=== PATIENT | male | born 1935 | race Caucasian/White ===

== ENCOUNTER 2018-04-26 07:55 | Inpatient (IN) | payer MEDICARE, MEDICAID ==
[~2018-04-26] VITALS: Ht 172.7 cm; Wt 40.0 kg
--- NOTE | 2018-04-26 07:52 | Emergency Room Report ---
History of Present Illness General Source: Medical Record, EMS Present Illness HPI 82YOM BIBEMS from SNF for "fever." No other associated symptoms reported by SNF staff to EMS At baseline, patient nonverbal HPI otherwise limited had fever 101 at SNF Now to 99 after SNF gave tylenol per paperwork, history of dementia, HTN, APOLONIA, anemia Allergies: Coded Allergies: No Known Allergies (Unverified , 04/26/18) Patient History Limited by: medical condition, other - Nonverbal at baseline per EMS Review of Systems All Other Systems: limited - Nonverbal Physical Exam Sp02 EP Interpretation: reviewed, abnormal General Appearance: normal inspection, well appearing, no apparent distress, alert, non-toxic, cachetic, Chronically Ill Head: normocephalic, atraumatic Eyes: bilateral eye PERRL, bilateral eye EOMI ENT: normal ENT inspection, hearing grossly normal, normal pharynx, no angioedema, normal voice, TMs + canals normal, uvula midline, moist mucus membranes Neck: normal inspection, full range of motion, supple, thyroid normal, no meningismus, no bony tend Respiratory: normal inspection, lungs clear, normal breath sounds, no rhonchi, no respiratory distress, no retraction, no accessory muscle use, no wheezing, decreased breath sounds, speaking full sentences, other - Poor respiratory effort Cardiovascular #1: regular rate, rhythm, no edema, no JVD, normal capillary refill Gastrointestinal: normal inspection, normal bowel sounds, non tender, soft, no mass, no peritonitis, non-distended, no guarding, no hernia, no pulsatile mass Genitourinary: no CVA tenderness Musculoskeletal: normal inspection, back normal, normal range of motion, no calf tenderness, pelvis stable, Юлия's Sign negative, other - bandage on right heel removed; healing stage 1 decub. No obvious infection Neurologic: normal inspection, alert, responsive, soccer coach III-XII nml as tested, motor strength/tone normal, cerebellar normal, normal gait, speech normal, other - Focal limb movement Psychiatric: judgement/insight normal, mood/affect normal Skin: normal inspection, normal color, no rash Lymphatic: normal inspection, no adenopathy Procedures Critical Care Time Critical Care Time CC time 35 min Critical care time endorsed for this patient for suspected sepsis Critical care time includes review of laboratory tests, imaging, review of EMR, review of paperwork from SNF (if available), discussion with patient and family (if available), review of code status/POLS (if available). Critical care time also likely includes assessment of fluid status, stabilization of vital signs, selection and dosing of appropriate antibiotics, discussion with PMD/attending hospitalist/freight agent. Critical care time does not include any procedures which are documented elsewhere in this EMR. Medical Decision Making Diagnostic Impression: Primary Impression: Fever Qualified Codes: R50.9 - Fever, unspecified Additional Impressions: Hypernatremia CKD (chronic kidney disease) Qualified Codes: N18.9 - Chronic kidney disease, unspecified Elevated troponin Pneumonia Qualified Codes: J18.1 - Lobar pneumonia, unspecified organism ER Course VSS, afebrile here O2 sat low, improves with supplemental O2 - Also noted poor respiratory effort on exam Septic workup initiated Only 1L of fluid bolus given normotensive, ?history of reduced EF, CKD Hypernatremia - with elevated serumCr - Likely dehydration - IVF given Elevated troponin - likely demand ischemia +- CKD - No acute ischemia on ECG Sepsis - elevated leuks - Source: right lower lobe infiltrate on ED review of XRAY - Empiric Abx given Admit to Dr Jean at 845am Tele bed EKG Diagnostic Results Rate: normal Rhythm: NSR ST Segments: no acute changes Other Impression PVCs Rhythm Strip Diag. Results EP Interpretation: yes Rate: 97 Rhythm: NSR, other - +PVCs Chest X-Ray Diagnostic Results Chest X-Ray Diagnostic Results : Chest X-Ray Ordered: Yes # of Views/Limited/Complete: 1 View Indication: Other - fever EP Interpretation: Yes Interpretation: no effusion, no pneumothorax, no acute cardiopulmonary disease, other - Right lung infiltrate Impression: Other - Pneumonia Electronically Signed by: Dr Onelia Collins MD Status: improved Disposition: ADMITTED INPATIENT Condition: Serious ONELIA COLLINS M.D. Apr 26, 2018 07:52
[2018-04-26] MEDS ORDERED: Vancomycin 1 GM in NS 275 ML IV ONE (08:00)
[2018-04-26] MEDS ORDERED: DOCUSATE SODIU250 MG ORAL (08:09)
[2018-04-26] MEDS ORDERED: LORATADINE10 M2 PO (08:09)
[2018-04-26] MEDS ORDERED: LORAZEPAM0.5 MG ORAL (08:09)
[2018-04-26] MEDS ORDERED: ELIQUIS5 MG PO (08:09)
[2018-04-26] MEDS ORDERED: HALOPERIDOL1 MG ORAL (08:09)
[2018-04-26] MEDS ORDERED: GERI-LANTA LIQ355 ML PO (08:09)
[2018-04-26] MEDS ORDERED: DEPAKENE250 MG ORAL (08:09)
[2018-04-26] MEDS ORDERED: TRAZODONE HCL150 MG ORAL (08:09)
[2018-04-26] MEDS ORDERED: BENZTROPINE ME0.5 MG PO (08:09)
[2018-04-26] MEDS ORDERED: MILK OF MA400 MG/51 ORAL (08:09)
[2018-04-26] MEDS ORDERED: SENNA8.6 M2 PO (08:09)
[2018-04-26] MEDS ORDERED: FLUTICASONE PRO16 G1 NASAL (08:09)
[2018-04-26] MEDS ORDERED: MULTIVITAMINS1 EAC2 ORAL (08:09)
[2018-04-26] MEDS ORDERED: DONEPEZIL HCL5 M2 ORAL (08:09)
[2018-04-26] MEDS ORDERED: ALBUTEROL2.5 MG/3 M INH (08:09)
[2018-04-26] MEDS ORDERED: ASPIR 8181 MG ORAL (08:09)
[2018-04-26] MEDS ORDERED: Zosyn 3.375gm inj ONE ×2 (08:21→22:31)
[2018-04-26 08:31] LABS: APPEARANCE,URINE SLIGHTLY CLOUDY; BILIRUBIN, URINE 1+ (NEGATIVE); COLOR,URINE BROWN; GLUCOSE, URINE (UA) NEGATIVE (NEGATIVE); KETONES,URINE NEGATIVE (NEGATIVE); LEUKOCYTE ESTERASE ,URINE 1+ (NEGATIVE); NITRITE,URINE NEGATIVE (NEGATIVE); PH,URINE 5 (4.5-8.0); PROTEIN,URINE 2+ (NEGATIVE); UROBILINOGEN,URINE 1 MG/DL (0.0-1.0)
[2018-04-26 08:32] LABS: HEMATOCRIT 43.2 % (42.0-52.0); HEMOGLOBIN 13.7 G/DL (14.2-18.0); MEAN CORPUSCULAR VOLUME 92 FL (80-99); PLATELET COUNT 464 K/UL (150-450); RED BLOOD COUNT 4.69 M/UL (4.70-6.10); WHITE BLOOD COUNT 16.5 K/UL (4.8-10.8)
[2018-04-26 08:33] LABS: ANION GAP 11 mmol/L (5-15); BLOOD UREA NITROGEN 84 mg/dL (7-18); CALCIUM 9.7 MG/DL (8.5-10.1); CARBON DIOXIDE 28 MMOL/L (21-32); CHLORIDE 119 MMOL/L (98-107); POTASSIUM 4.2 MMOL/L (3.5-5.1); SODIUM 158 MMOL/L (136-145)
[2018-04-26 08:37] VITALS: BP 122/80
[2018-04-26] MEDS: Piperacillin/Tazobactam 3.375 GM in D5W 55 ML IV SCH ×2 (08:38→22:42)
[2018-04-26] MEDS ORDERED: Miralax 17gm pkt ORAL PRN (08:45)
[2018-04-26] MEDS ORDERED: LORazepam Inj 2mg/ml 1ml IV PRN (08:45)
[2018-04-26] MEDS ORDERED: Morphine Sulfate 4mg/ml Inj IVP PRN (08:45)
[2018-04-26] MEDS ORDERED: Albuterol/Ipratropium 3ml neb HHN PRN (08:45)
[2018-04-26 08:47] LABS: ALANINE AMINOTRANSFERASE 20 U/L (12-78); ALBUMIN 2.1 G/DL (3.4-5.0); ALBUMIN/GLOBULIN RATIO 0.3 (1.0-2.7); ALKALINE PHOSPHATASE 67 U/L (46-116); ASPARTATE AMINO TRANSFERASE 35 U/L (15-37); BILIRUBIN,TOTAL 1.1 MG/DL (0.2-1.0); CKMB < 0.5 NG/ML (0.0-3.6); CREATINE KINASE 147 U/L (26-308)
[2018-04-26 08:49] LABS: BILIRUBIN,DIRECT 0.3 MG/DL (0.0-0.3)
[2018-04-26] MEDS ORDERED: Vancomycin 1gm inj IVPB ONE (08:57)
[2018-04-26] MEDS ORDERED: Pantoprazole Inj IV SCH (09:00)
[2018-04-26] MEDS ORDERED: Heparin 5000 units/ml inj SUBQ SCH (09:00)
[2018-04-26 09:35] VITALS: BP 136/78
[2018-04-26] MEDS ORDERED: Acetaminophen 650 MG SUPP RECTAL ONE (10:30)
[2018-04-26 10:39] VITALS: BP 118/75
[2018-04-26] MEDS: Pantoprazole Inj IV SCH (13:11)
[2018-04-26] MEDS: Heparin 5000 units/ml inj SUBQ SCH ×2 (13:13→22:39)
--- NOTE | 2018-04-26 14:21 | Consultation ---
History of Present Illness General Date patient seen: Apr 26, 2018 Chief Complaint: Fever Present Illness HPI 82 year old Male with hx of dementia, HTN, APOLONIA, anemia brought in from SNF for "fever." No other associated symptoms reported by SNF staff to EMS. Pt had a fever of 101. his initial cxr showed RLL infiltrate. He was found to be in renal failure and admitted to telemetry for further management. Allergies: Coded Allergies: No Known Allergies (Unverified , 04/26/18) Medication History Scheduled Apixaban (Eliquis), 5 MG PO DAILY, (Reported) Aspirin* (Aspir 81*), 81 MG ORAL DAILY, (Reported) Benztropine Mesylate* (Cogentin*), 1 MG PO BID, (Reported) Docusate Sodium* (Docusate Sodium*), 250 MG ORAL DAILY, (Reported) Donepezil Hcl* (Donepezil Hcl*), 5 MG ORAL BID, (Reported) Fluticasone Propionate* (Fluticasone Propionate*), 1 SPRAY NASAL DAILY, ( Reported) Haloperidol* (Haldol*), 2 MG ORAL BID, (Reported) Loratadine (Loratadine), 10 MG PO DAILY, (Reported) Lorazepam* (Lorazepam*), 0.5 MG ORAL QID, (Reported) Mag Hydrox/Al Hydrox/Simeth (Neyda-Lanta Liquid), 30 ML PO TID, (Reported) Magnesium Hydroxide* (Milk Of Magnesia*), 30 ML ORAL DAILY, (Reported) Multivitamins* (Multivitamins*), 1 TAB ORAL DAILY, (Reported) Sennosides (Senna), 8.6 MG PO DAILY, (Reported) Trazodone* (Trazodone*), 50 MG ORAL BEDTIME, (Reported) Valproic Acid (Depakene), 500 MG ORAL BID, (Reported) Scheduled PRN Albuterol Sulfate* (Albuterol Sulfate Hhn*), 3 ML INH Q6H PRN for Shortness of Breath, (Reported) Patient History Healthcare decision maker Resuscitation status Advanced Directive on File Past Medical/Surgical History Past Medical/Surgical History: (1) Dementia (2) Psychosis (3) Hypertension (4) Severe protein-calorie malnutrition Review of Systems All Other Systems: negative except mentioned in HPI Physical Exam General Appearance: cachetic Lines, tubes and drains: peripheral HEENT: normocephalic, atraumatic Neck: non-tender, normal alignment Respiratory/Chest: chest wall non-tender, rhonchi - left, rhonchi - right Cardiovascular/Chest: normal peripheral pulses, normal rate Abdomen: normal bowel sounds, non tender, soft Genitourinary/Rectal: normal genital exam Extremities: normal range of motion Last 24 Hour Vital Signs Date Time Temp Pulse Resp B/P (MAP) Pulse Ox O2 Delivery O2 Flow Rate FiO2 04/26/18 11:15 99.4 75 20 149/81 99 Nasal Cannula 3.0 101.4 04/26/18 10:39 75 30 118/75 90 Nasal Cannula 2.0 04/26/18 09:35 90 30 136/78 97 Nasal Cannula 2.0 04/26/18 08:37 101.4 90 28 122/80 97 Nasal Cannula 2.0 101.4 04/26/18 07:49 98.9 93 18 111/78 84 Nasal Cannula 2.0 99.0 Laboratory Tests Test 04/26/18 08:10 White Blood Count 16.5 K/UL (4.8-10.8) H Red Blood Count 4.69 M/UL (4.70-6.10) L Hemoglobin 13.7 G/DL (14.2-18.0) L Hematocrit 43.2 % (42.0-52.0) Mean Corpuscular Volume 92 FL (80-99) Mean Corpuscular Hemoglobin 29.1 PG (27.0-31.0) Mean Corpuscular Hemoglobin Concent 31.6 G/DL (32.0-36.0) L Red Cell Distribution Width 16.0 % (11.6-14.8) H Platelet Count 464 K/UL (150-450) H Mean Platelet Volume 6.4 FL (6.5-10.1) L Neutrophils (%) (Auto) % (45.0-75.0) Lymphocytes (%) (Auto) % (20.0-45.0) Monocytes (%) (Auto) % (1.0-10.0) Eosinophils (%) (Auto) % (0.0-3.0) Basophils (%) (Auto) % (0.0-2.0) Differential Total Cells Counted 100 Neutrophils % (Manual) 90 % (45-75) H Lymphocytes % (Manual) 8 % (20-45) L Monocytes % (Manual) 2 % (1-10) Eosinophils % (Manual) 0 % (0-3) Basophils % (Manual) 0 % (0-2) Band Neutrophils 0 % (0-8) Platelet Estimate Adequate Platelet Morphology Normal Anisocytosis 1+ Urine Color Brown Urine Appearance Slightly cloudy Urine pH 5 (4.5-8.0) Urine Specific [place] 1.025 (1.005-1.035) Urine Protein 2+ (NEGATIVE) H Urine Glucose (UA) Negative (NEGATIVE) Urine Ketones Negative (NEGATIVE) Urine Occult Blood 5+ (NEGATIVE) H Urine Nitrite Negative (NEGATIVE) Urine Bilirubin 1+ (NEGATIVE) H Urine Ictotest Negative Urine Urobilinogen 1 MG/DL (0.0-1.0) H Urine Leukocyte Esterase 1+ (NEGATIVE) H Urine RBC Tntc /HPF (0 - 0) H Urine WBC 2-4 /HPF (0 - 0) Urine Squamous Epithelial Cells Occasional /LPF Urine Bacteria Few /HPF (NONE) Urine Mucus Moderate /LPF (NONE/OCC) H Sodium Level 158 MMOL/L (136-145) H Potassium Level 4.2 MMOL/L (3.5-5.1) Chloride Level 119 MMOL/L (98-107) H Carbon Dioxide Level 28 MMOL/L (21-32) Anion Gap 11 mmol/L (5-15) Blood Urea Nitrogen 84 mg/dL (7-18) H Creatinine 2.0 MG/DL (0.55-1.30) H Estimat Glomerular Filtration Rate mL/min (>60) Glucose Level 135 MG/DL (74-106) H Lactic Acid Level 1.90 mmol/L (0.4-2.0) Calcium Level 9.7 MG/DL (8.5-10.1) Total Bilirubin 1.1 MG/DL (0.2-1.0) H Direct Bilirubin 0.3 MG/DL (0.0-0.3) Aspartate Amino Transf (AST/SGOT) 35 U/L (15-37) Alanine Aminotransferase (ALT/SGPT) 20 U/L (12-78) Alkaline Phosphatase 67 U/L (46-116) Total Creatine Kinase 147 U/L (26-308) Creatine Kinase MB < 0.5 NG/ML (0.0-3.6) Creatine Kinase MB Relative Index 0.3 Troponin I 0.400 ng/mL (0.000-0.056) Pro-B-Type Natriuretic Peptide 1400 pg/mL (0-125) H Total Protein 9.4 G/DL (6.4-8.2) H Albumin 2.1 G/DL (3.4-5.0) L Globulin 7.3 g/dL Albumin/Globulin Ratio 0.3 (1.0-2.7) L Microbiology Date/Time Source Procedure Growth Status 04/26/18 08:45 Nasal Nares Influenza Types A,B Antigen (IMMANUEL) - Final Complete Height (Feet): 5 Height (Inches): 8.00 Weight (Pounds): 150 Medications Current Medications Medications (Trade) Dose Ordered Sig/Jeronimo Route PRN Reason Start Time Stop Time Status Last Admin Dose Admin Acetaminophen (Tylenol) 650 mg Q4H PRN ORAL FEVER 04/26/18 08:45 05/26/18 08:44 Albuterol/ Ipratropium (Albuterol/ Ipratropium) 3 ml Q4H PRN HHN Shortness of Breath 04/26/18 08:45 05/01/18 08:44 Dextrose (Dextrose 50%) 25 ml STAT PRN IV Hypoglycemia 04/26/18 08:45 05/26/18 08:44 Dextrose (Dextrose 50%) 50 ml STAT PRN IV Hypoglycemia 04/26/18 09:00 05/26/18 08:59 Heparin Sodium (Porcine) (Heparin 5000 units/ml) 5,000 units EVERY 12 HOURS SUBQ 04/26/18 12:00 05/26/18 11:59 04/26/18 13:13 Lorazepam (Ativan 2mg/ml 1ml) 2 mg Q2H PRN IV For Anxiety 04/26/18 08:45 05/03/18 08:44 Morphine Sulfate (Morphine Sulfate) 4 mg Q4H PRN IVP Severe Pain (Pain Scale 7-10) 04/26/18 08:45 05/03/18 08:44 Ondansetron HCl (Zofran) 4 mg Q6H PRN IVP Nausea & Vomiting 04/26/18 08:45 05/26/18 08:44 Pantoprazole (Protonix) 40 mg DAILY IV 04/26/18 12:00 05/26/18 11:59 04/26/18 13:11 Piperacillin Sod/ Tazobactam Sod 3.375 gm/Dextrose 55 ml @ 110 mls/hr Q8HR IV 04/26/18 14:00 04/27/18 13:59 04/26/18 08:38 Polyethylene Glycol (Miralax) 17 gm DAILYPRN PRN ORAL Constipation 04/26/18 08:45 05/26/18 08:44 Trazodone HCl (Desyrel) 50 mg BEDTIME ORAL 04/26/18 21:00 05/26/18 20:59 Vancomycin HCl/ Dextrose 250 ml @ 166.667 mls/hr Q36H IVPB 04/27/18 18:00 05/02/18 17:59 Assessment/Plan Problem List: (1) Sepsis ICD Codes: A41.9 - Sepsis, unspecified organism SNOMED: 00241589 (2) Pneumonia ICD Codes: J18.9 - Pneumonia, unspecified organism SNOMED: 257302128 Qualifiers: Qualified Codes: J18.1 - Lobar pneumonia, unspecified organism (3) ATN (acute tubular necrosis) ICD Codes: N17.0 - Acute kidney failure with tubular necrosis SNOMED: 69248223 (4) Toxic metabolic encephalopathy ICD Codes: G92 - Toxic encephalopathy SNOMED: 173895459 (5) Severe protein-calorie malnutrition ICD Codes: E43 - Unspecified severe protein-calorie malnutrition SNOMED: 154534216 (6) Psychosis ICD Codes: F29 - Unspecified psychosis not due to a substance or known physiological condition SNOMED: 53365967 (7) Dementia ICD Codes: F03.90 - Unspecified dementia without behavioral disturbance SNOMED: 14106522 Assessment/Plan iv fluids iv abx flores cultures check electrolytes swallow study dvt prophylaxis telemetry monitoring Melanie Christy MD Apr 26, 2018 14:21
--- NOTE | 2018-04-26 16:06 | Consultation ---
History of Present Illness General Date patient seen: Apr 26, 2018 Chief Complaint: Fever Present Illness HPI 82 y/o M with hx of Dementia, HTN, anemia, SNF resident presents to ED on 04/26 with fever up to 101 at SNF. Febrile to 101.4 here. WBC 16. CXR p. Blood prssure stable Allergies: Coded Allergies: No Known Allergies (Unverified , 04/26/18) Medication History Scheduled Apixaban (Eliquis), 5 MG PO DAILY, (Reported) Aspirin* (Aspir 81*), 81 MG ORAL DAILY, (Reported) Benztropine Mesylate* (Cogentin*), 1 MG PO BID, (Reported) Docusate Sodium* (Docusate Sodium*), 250 MG ORAL DAILY, (Reported) Donepezil Hcl* (Donepezil Hcl*), 5 MG ORAL BID, (Reported) Fluticasone Propionate* (Fluticasone Propionate*), 1 SPRAY NASAL DAILY, ( Reported) Haloperidol* (Haldol*), 2 MG ORAL BID, (Reported) Loratadine (Loratadine), 10 MG PO DAILY, (Reported) Lorazepam* (Lorazepam*), 0.5 MG ORAL QID, (Reported) Mag Hydrox/Al Hydrox/Simeth (Neyda-Lanta Liquid), 30 ML PO TID, (Reported) Magnesium Hydroxide* (Milk Of Magnesia*), 30 ML ORAL DAILY, (Reported) Multivitamins* (Multivitamins*), 1 TAB ORAL DAILY, (Reported) Sennosides (Senna), 8.6 MG PO DAILY, (Reported) Trazodone* (Trazodone*), 50 MG ORAL BEDTIME, (Reported) Valproic Acid (Depakene), 500 MG ORAL BID, (Reported) Scheduled PRN Albuterol Sulfate* (Albuterol Sulfate Hhn*), 3 ML INH Q6H PRN for Shortness of Breath, (Reported) Patient History Healthcare decision maker Resuscitation status Advanced Directive on File Patient History Narrative Pmhx: as above Shx: reviewed Fhx: non contributory Physical Exam Physical Exam Narrative General Appearance: normal inspection, well appearing, no apparent distress, non-toxic, cachetic, Chronically Ill HEENT:, atraumatic, PERRL, moist mucus membranes Neck: normal inspection, full range of motion, supple, no meningismus, no bony tend Respiratory: normal inspection, lungs clear, normal breath sounds, no rhonchi, no respiratory distress, no retraction, no accessory muscle use, no wheezing, decreased breath sounds, speaking full sentences, other - Poor respiratory effort Cardiovascular : regular rate, rhythm, no edema, no JVD, normal capillary refill Gastrointestinal: normal inspection, normal bowel sounds, non tender, soft, no mass, non-distended, no guarding Genitourinary: no CVA tenderness Musculoskeletal: normal inspection, back normal, normal range of motion, no calf tenderness, pelvis stable, other - bandage on right heel removed; healing stage 1 decub. No obvious infection Skin: normal inspection, normal color, no rash Last 24 Hour Vital Signs Date Time Temp Pulse Resp B/P (MAP) Pulse Ox O2 Delivery O2 Flow Rate FiO2 04/26/18 12:00 68 04/26/18 11:15 99.4 75 20 149/81 99 Nasal Cannula 3.0 101.4 04/26/18 10:39 75 30 118/75 90 Nasal Cannula 2.0 04/26/18 09:35 90 30 136/78 97 Nasal Cannula 2.0 04/26/18 08:37 101.4 90 28 122/80 97 Nasal Cannula 2.0 101.4 04/26/18 07:49 98.9 93 18 111/78 84 Nasal Cannula 2.0 99.0 Laboratory Tests Test 04/26/18 08:10 White Blood Count 16.5 K/UL (4.8-10.8) H Red Blood Count 4.69 M/UL (4.70-6.10) L Hemoglobin 13.7 G/DL (14.2-18.0) L Hematocrit 43.2 % (42.0-52.0) Mean Corpuscular Volume 92 FL (80-99) Mean Corpuscular Hemoglobin 29.1 PG (27.0-31.0) Mean Corpuscular Hemoglobin Concent 31.6 G/DL (32.0-36.0) L Red Cell Distribution Width 16.0 % (11.6-14.8) H Platelet Count 464 K/UL (150-450) H Mean Platelet Volume 6.4 FL (6.5-10.1) L Neutrophils (%) (Auto) % (45.0-75.0) Lymphocytes (%) (Auto) % (20.0-45.0) Monocytes (%) (Auto) % (1.0-10.0) Eosinophils (%) (Auto) % (0.0-3.0) Basophils (%) (Auto) % (0.0-2.0) Differential Total Cells Counted 100 Neutrophils % (Manual) 90 % (45-75) H Lymphocytes % (Manual) 8 % (20-45) L Monocytes % (Manual) 2 % (1-10) Eosinophils % (Manual) 0 % (0-3) Basophils % (Manual) 0 % (0-2) Band Neutrophils 0 % (0-8) Platelet Estimate Adequate Platelet Morphology Normal Anisocytosis 1+ Urine Color Brown Urine Appearance Slightly cloudy Urine pH 5 (4.5-8.0) Urine Specific [place] 1.025 (1.005-1.035) Urine Protein 2+ (NEGATIVE) H Urine Glucose (UA) Negative (NEGATIVE) Urine Ketones Negative (NEGATIVE) Urine Occult Blood 5+ (NEGATIVE) H Urine Nitrite Negative (NEGATIVE) Urine Bilirubin 1+ (NEGATIVE) H Urine Ictotest Negative Urine Urobilinogen 1 MG/DL (0.0-1.0) H Urine Leukocyte Esterase 1+ (NEGATIVE) H Urine RBC Tntc /HPF (0 - 0) H Urine WBC 2-4 /HPF (0 - 0) Urine Squamous Epithelial Cells Occasional /LPF Urine Bacteria Few /HPF (NONE) Urine Mucus Moderate /LPF (NONE/OCC) H Sodium Level 158 MMOL/L (136-145) H Potassium Level 4.2 MMOL/L (3.5-5.1) Chloride Level 119 MMOL/L (98-107) H Carbon Dioxide Level 28 MMOL/L (21-32) Anion Gap 11 mmol/L (5-15) Blood Urea Nitrogen 84 mg/dL (7-18) H Creatinine 2.0 MG/DL (0.55-1.30) H Estimat Glomerular Filtration Rate mL/min (>60) Glucose Level 135 MG/DL (74-106) H Lactic Acid Level 1.90 mmol/L (0.4-2.0) Calcium Level 9.7 MG/DL (8.5-10.1) Total Bilirubin 1.1 MG/DL (0.2-1.0) H Direct Bilirubin 0.3 MG/DL (0.0-0.3) Aspartate Amino Transf (AST/SGOT) 35 U/L (15-37) Alanine Aminotransferase (ALT/SGPT) 20 U/L (12-78) Alkaline Phosphatase 67 U/L (46-116) Total Creatine Kinase 147 U/L (26-308) Creatine Kinase MB < 0.5 NG/ML (0.0-3.6) Creatine Kinase MB Relative Index 0.3 Troponin I 0.400 ng/mL (0.000-0.056) Pro-B-Type Natriuretic Peptide 1400 pg/mL (0-125) H Total Protein 9.4 G/DL (6.4-8.2) H Albumin 2.1 G/DL (3.4-5.0) L Globulin 7.3 g/dL Albumin/Globulin Ratio 0.3 (1.0-2.7) L Microbiology Date/Time Source Procedure Growth Status 04/26/18 08:45 Nasal Nares Influenza Types A,B Antigen (IMMANUEL) - Final Complete Height (Feet): 5 Height (Inches): 8.00 Weight (Pounds): 150 Medications Current Medications Medications (Trade) Dose Ordered Sig/Jeronimo Route PRN Reason Start Time Stop Time Status Last Admin Dose Admin Acetaminophen (Tylenol) 650 mg Q4H PRN ORAL FEVER 04/26/18 08:45 05/26/18 08:44 Albuterol/ Ipratropium (Albuterol/ Ipratropium) 3 ml Q4H PRN HHN Shortness of Breath 04/26/18 08:45 05/01/18 08:44 Dextrose (Dextrose 50%) 25 ml STAT PRN IV Hypoglycemia 04/26/18 08:45 05/26/18 08:44 Dextrose (Dextrose 50%) 50 ml STAT PRN IV Hypoglycemia 04/26/18 09:00 05/26/18 08:59 Heparin Sodium (Porcine) (Heparin 5000 units/ml) 5,000 units EVERY 12 HOURS SUBQ 04/26/18 12:00 05/26/18 11:59 04/26/18 13:13 Lorazepam (Ativan 2mg/ml 1ml) 2 mg Q2H PRN IV For Anxiety 04/26/18 08:45 05/03/18 08:44 Morphine Sulfate (Morphine Sulfate) 4 mg Q4H PRN IVP Severe Pain (Pain Scale 7-10) 04/26/18 08:45 05/03/18 08:44 Ondansetron HCl (Zofran) 4 mg Q6H PRN IVP Nausea & Vomiting 04/26/18 08:45 05/26/18 08:44 Pantoprazole (Protonix) 40 mg DAILY IV 04/26/18 12:00 05/26/18 11:59 04/26/18 13:11 Piperacillin Sod/ Tazobactam Sod 3.375 gm/Dextrose 55 ml @ 110 mls/hr Q8HR IV 04/26/18 14:00 04/27/18 13:59 04/26/18 08:38 Polyethylene Glycol (Miralax) 17 gm DAILYPRN PRN ORAL Constipation 04/26/18 08:45 05/26/18 08:44 Trazodone HCl (Desyrel) 50 mg BEDTIME ORAL 04/26/18 21:00 05/26/18 20:59 Vancomycin HCl/ Dextrose 250 ml @ 166.667 mls/hr Q36H IVPB 04/27/18 18:00 05/02/18 17:59 Assessment/Plan Assessment/Plan Abx: IV Vanco 04/26- Zosyn 04/26- Assessment: Sepsis- 2ry to PNA; r/o bacteremia -u/a RBC TNTC, WBC 2-4, nit neg, leuk +1 -Bcx p -CXR Right infrahilar infiltrate Fever/leukocytosis APOLONIA Dementia HTN anemia SNF resident Plan: -Continue empiric IV vanco and Zosyn pending cultures -f/u cx, CXR -monitor CBC/BMP, temperatures -aspiration precautions Thank you for this consultation. Will continue to follow along with you. Discussed with Clarissa Becerra M.D. Apr 26, 2018 16:06
--- NOTE | 2018-04-26 16:56 | Diagnostic Imaging Report ---
Indication: Cough Technique: One view of the chest Comparison: none Findings: There is an infiltrate in the right infrahilar region. The left lung and bilateral pleural spaces are otherwise clear. Heart size is normal. The aorta is tortuous and calcified. There are surgical changes of the cervical spine Impression: Right infrahilar infiltrate Other findings as noted
--- NOTE | 2018-04-26 17:45 | History and Physical Report ---
DATE OF ADMISSION: 04/26/2018 TIME: 2 p.m. CONSULTANTS: 1. Melanie Christy M.D. 2. Ulisses Valencia M.D. CHIEF COMPLAINT: Lethargy, fever, sepsis, and hypoxia. BRIEF HISTORY: This is an 82-year-old male from [facility] presented with above-mentioned diagnoses. Currently, , calm, sleeping in bed, not talking much. PAST MEDICAL HISTORY: Includes CKD, elevated troponin, pneumonia, and . PAST SURGICAL HISTORY: Unknown. MEDICATIONS: Vancomycin, trazodone, Protonix, Tylenol, heparin, albuterol, morphine, and Zofran. ALLERGIES: Denies. SOCIAL HISTORY: Unable to obtain secondary to the patient's condition. REVIEW OF SYSTEMS: Unavailable. PHYSICAL EXAMINATION: GENERAL: Lethargic in bed, nonverbal. VITAL SIGNS: Temperature is 99 degrees, pulse 75, respirations 20 and blood pressure 149/81. CARDIOVASCULAR: No murmur. LUNGS: Poor air exchange. ABDOMEN: Bowel sounds distant. EXTREMITIES: No cyanosis, clubbing, or edema. NEUROLOGIC: The patient is flaccid in bed, not following directions. LABORATORY AND DIAGNOSTIC DATA: White count 16, hemoglobin and hematocrit 13/43 and platelets 464. BMP shows sodium 158, chloride 119, BUN and creatinine is 84/2.0 and glucose 135. Urinalysis, 2+ protein, 5+ occult blood, 1+ bilirubin, and 1+ leukocyte esterase. ASSESSMENT: 1. Right lower lobe pneumonia. 2. UTI. 3. Fever. 4. Sepsis. 5. Hypoxia. 6. CKD. PLAN: 1. Continue previous medications. 2. O2 and pulmonary treatment. 3. Antibiotics per Infectious Disease. 4. OT/PT. 5. Dietary evaluation. 6. CBC and BMP in the morning. 7. Resume home medications. 8. IV fluids. 9. Dr. Christy, Dr. Valencia and Dr. Nash to evaluate. We will continue to follow this patient medically. Héctor Jean D.O. DR: JAXSON JOB#: [id number] CC:
[2018-04-26] MEDS ORDERED: TraZODone 50mg tab ORAL SCH (21:00)
[2018-04-26 22:59] VITALS: BP 120/72
[2018-04-27] VITALS: BP 162/72
[2018-04-27 04:00] VITALS: BP 115/76
[2018-04-27] MEDS ORDERED: Zosyn 3.375gm inj ONE (06:03)
[2018-04-27] MEDS: Piperacillin/Tazobactam 3.375 GM in D5W 55 ML IV SCH (06:18)
[2018-04-27 07:18] LABS: ANION GAP 9 mmol/L (5-15); BLOOD UREA NITROGEN 64 mg/dL (7-18); CALCIUM 8.8 MG/DL (8.5-10.1); CARBON DIOXIDE 31 MMOL/L (21-32); CHLORIDE 120 MMOL/L (98-107); CREATININE 1.5 MG/DL (0.55-1.30); SODIUM 160 MMOL/L (136-145)
[2018-04-27 07:25] LABS: ALBUMIN 1.8 G/DL (3.4-5.0); ANION GAP 8 mmol/L (5-15); BLOOD UREA NITROGEN 65 mg/dL (7-18); CALCIUM 8.8 MG/DL (8.5-10.1); CARBON DIOXIDE 31 MMOL/L (21-32); CHLORIDE 122 MMOL/L (98-107); CREATININE 1.5 MG/DL (0.55-1.30); PHOSPHORUS 2.1 MG/DL (2.5-4.9); POTASSIUM 3.5 MMOL/L (3.5-5.1)
[2018-04-27 07:36] LABS: HEMOGLOBIN 12.4 G/DL (14.2-18.0); MEAN CORPUSCULAR VOLUME 92 FL (80-99); PLATELET COUNT 392 K/UL (150-450); RED BLOOD COUNT 4.23 M/UL (4.70-6.10); RED CELL DISTRIBUTION WIDTH 16.3 % (11.6-14.8); WHITE BLOOD COUNT 17.5 K/UL (4.8-10.8)
[2018-04-27 07:39] LABS: SODIUM 161 MMOL/L (136-145)
[2018-04-27 08:00] VITALS: BP 103/94
[2018-04-27] MEDS: Pantoprazole Inj IV SCH (08:29)
[2018-04-27] MEDS: Heparin 5000 units/ml inj SUBQ SCH ×2 (08:30→21:18)
--- NOTE | 2018-04-27 08:51 | Nephrology Progress Note ---
Assessment/Plan Assessment/Plan 1. APOLONIA- due to volume depletion - renal US pending - continue IVF's, Cr/BUN has improved 84/2----------->64/1.5 respectively - avoid nephrotoxins 2. Hypernatremia- increased D5W to 100 ml/hr - approx 5-6 L free water volume deficit - recheck Na level at 3 pm today 3. Hypokalemia- being replaced today 4. PNA- per ID mgmt Thank you Dr Jean for allowing me to assist in the renal care of this patient Subjective Date patient seen: Apr 27, 2018 Time patient seen: 08:47 ROS Limited/Unobtainable: Yes Allergies: Coded Allergies: No Known Allergies (Unverified , 04/26/18) Subjective Patient nonverbal. In no overt distress Objective Last 24 Hour Vital Signs Date Time Temp Pulse Resp B/P (MAP) Pulse Ox O2 Delivery O2 Flow Rate FiO2 04/27/18 04:00 98.2 104 26 115/76 93 Nasal Cannula 3.0 98.2 04/27/18 04:00 102 04/27/18 00:00 84 04/27/18 00:00 97.5 97 36 162/72 98 Nasal Cannula 2.0 97.5 04/26/18 23:33 Nasal Cannula 2.0 28 04/26/18 23:31 95 Nasal Cannula 2.0 28 04/26/18 23:30 65 18 Nasal Cannula 2.0 28 04/26/18 22:59 98.1 67 18 120/72 97 Nasal Cannula 2.0 98.1 04/26/18 20:00 67 04/26/18 16:00 71 04/26/18 12:00 68 04/26/18 11:15 99.4 75 20 149/81 99 Nasal Cannula 3.0 101.4 04/26/18 10:39 75 30 118/75 90 Nasal Cannula 2.0 04/26/18 09:35 90 30 136/78 97 Nasal Cannula 2.0 Intake and Output 04/26/18 04/27/18 19:00 07:00 Intake Total 55 ml 1000 ml Output Total 20 ml Balance 35 ml 1000 ml Intake IV Total 55 ml 1000 ml Output Urine Total 20 ml # Voids 1 Laboratory Tests 04/27/18 05:40: White Blood Count 17.5H, Red Blood Count 4.23L, Hemoglobin 12.4L, Hematocrit 39.0L, Mean Corpuscular Volume 92, Mean Corpuscular Hemoglobin 29.2, Mean Corpuscular Hemoglobin Concent 31.7L, Red Cell Distribution Width 16.3H, Platelet Count 392, Mean Platelet Volume 6.7, Neutrophils (%) (Auto) , Lymphocytes (%) (Auto) , Monocytes (%) (Auto) , Eosinophils (%) (Auto) , Basophils (%) (Auto) , Neutrophils % (Manual) [Pending], Lymphocytes % (Manual) [Pending], Platelet Estimate [Pending], Platelet Morphology [Pending], Sodium Level 160H, Potassium Level 3.1L, Chloride Level 120H, Carbon Dioxide Level 31, Anion Gap 9, Blood Urea Nitrogen 64H, Creatinine 1.5H, Estimat Glomerular Filtration Rate , Glucose Level 153H, Calcium Level 8.8, Phosphorus Level 2.1L, Albumin 1.8L Height (Feet): 5 Height (Inches): 8.00 Weight (Pounds): 88 General Appearance: no apparent distress EENT: PERRL/EOMI, normal ENT inspection Neck: normal alignment, supple Cardiovascular: normal rate, regular rhythm Respiratory/Chest: lungs clear, normal breath sounds Abdomen: non tender, soft Edema: no edema noted Arm (L), no edema noted Arm (R), no edema noted Leg (L), no edema noted Leg (R), no edema noted Pedal (L), no edema noted Pedal (R), no edema noted Generalized Merrill Freitas M.D. Apr 27, 2018 08:51
--- NOTE | 2018-04-27 09:03 | Diagnostic Imaging Report ---
Indication: Bilateral flank pain and acute renal failure Technique: Grayscale and duplex images of the kidneys, retroperitoneum, and bladder were obtained. Comparison: none Findings: Right kidney measures 9.2 cm in length. Left kidney measures 9 cm in length. Both kidneys demonstrate normal echogenicity. There is mild right hydronephrosis. No focal abnormality. Normal inferior vena cava. Bladder is trabeculated. It contains debris. Areas of irregular polypoid wall thickening are seen within the posterior bladder. Urinary jets are noted bilaterally. Bladder volume at the time of exam 182mL. Technologist reports patient had no urge to void at the time of exam so no postvoid imaging obtained. Impression: Mild right hydronephrosis, etiology not demonstrated Trabeculated bladder with debris. Irregular posterior polypoid wall thickening could indicate the presence of a mass, and cystoscopy should be considered..
[2018-04-27 09:30] LABS: POTASSIUM 3.5 MMOL/L (3.5-5.1)
[2018-04-27] MEDS ORDERED: Potassium Phosphate 15 MM in NS 275 ML IV ONE (11:00)
[2018-04-27 12:00] VITALS: BP 126/68
--- NOTE | 2018-04-27 13:01 | General Progress Note ---
Assessment/Plan Problem List: (1) UTI (urinary tract infection) ICD Codes: N39.0 - Urinary tract infection, site not specified SNOMED: 06399245 (2) Sepsis ICD Codes: A41.9 - Sepsis, unspecified organism SNOMED: 13026891 (3) Fever ICD Codes: R50.9 - Fever, unspecified SNOMED: 167632932 Qualifiers: Qualified Codes: R50.9 - Fever, unspecified (4) Hypernatremia ICD Codes: E87.0 - Hyperosmolality and hypernatremia SNOMED: 55164972 (5) CKD (chronic kidney disease) ICD Codes: N18.9 - Chronic kidney disease, unspecified SNOMED: 767087027 Qualifiers: Qualified Codes: N18.9 - Chronic kidney disease, unspecified (6) Elevated troponin ICD Codes: R74.8 - Abnormal levels of other serum enzymes SNOMED: 860157146, 413896529, 235737789 (7) Pneumonia ICD Codes: J18.9 - Pneumonia, unspecified organism SNOMED: 131653353 Qualifiers: Qualified Codes: J18.1 - Lobar pneumonia, unspecified organism Status: unchanged Assessment/Plan ot pt diet ivf abx cbc bmp am Subjective Constitutional: Reports: weakness Allergies: Coded Allergies: No Known Allergies (Unverified , 04/26/18) All Systems: reviewed and negative except above Subjective o2nc sleepy Objective Last 24 Hour Vital Signs Date Time Temp Pulse Resp B/P (MAP) Pulse Ox O2 Delivery O2 Flow Rate FiO2 04/27/18 12:00 97.0 76 21 126/68 96 Nasal Cannula 3.0 97.0 04/27/18 12:00 74 04/27/18 08:00 97.1 83 20 103/94 99 Nasal Cannula 3.0 97.1 04/27/18 08:00 71 04/27/18 07:55 96 Nasal Cannula 2.0 28 04/27/18 07:55 Nasal Cannula 2.0 28 04/27/18 07:55 100 18 Nasal Cannula 2.0 28 04/27/18 04:00 98.2 104 26 115/76 93 Nasal Cannula 3.0 98.2 04/27/18 04:00 102 04/27/18 00:00 84 04/27/18 00:00 97.5 97 36 162/72 98 Nasal Cannula 2.0 97.5 04/26/18 23:33 Nasal Cannula 2.0 28 04/26/18 23:31 95 Nasal Cannula 2.0 28 04/26/18 23:30 65 18 Nasal Cannula 2.0 28 04/26/18 22:59 98.1 67 18 120/72 97 Nasal Cannula 2.0 98.1 04/26/18 20:00 67 04/26/18 16:00 71 Intake and Output 04/26/18 04/27/18 19:00 07:00 Intake Total 55 ml 1000 ml Output Total 20 ml Balance 35 ml 1000 ml Intake IV Total 55 ml 1000 ml Output Urine Total 20 ml # Voids 1 Laboratory Tests 04/27/18 05:40: White Blood Count 17.5H, Red Blood Count 4.23L, Hemoglobin 12.4L, Hematocrit 39.0L, Mean Corpuscular Volume 92, Mean Corpuscular Hemoglobin 29.2, Mean Corpuscular Hemoglobin Concent 31.7L, Red Cell Distribution Width 16.3H, Platelet Count 392, Mean Platelet Volume 6.7, Neutrophils (%) (Auto) , Lymphocytes (%) (Auto) , Monocytes (%) (Auto) , Eosinophils (%) (Auto) , Basophils (%) (Auto) , Differential Total Cells Counted 100, Neutrophils % ( Manual) 88H, Lymphocytes % (Manual) 6L, Monocytes % (Manual) 6, Eosinophils % ( Manual) 0, Basophils % (Manual) 0, Band Neutrophils 0, Platelet Estimate Adequate, Platelet Morphology Normal, Red Blood Cell Morphology Normal, Sodium Level 160H, Potassium Level 3.5, Chloride Level 120H, Carbon Dioxide Level 31, Anion Gap 9, Blood Urea Nitrogen 64H, Creatinine 1.5H, Estimat Glomerular Filtration Rate , Glucose Level 153H, Calcium Level 8.8, Phosphorus Level 2.1L, Albumin 1.8L Height (Feet): 5 Height (Inches): 8.00 Weight (Pounds): 88 General Appearance: lethargic EENT: normal ENT inspection Neck: normal alignment Cardiovascular: normal peripheral pulses, normal rate, regular rhythm Respiratory/Chest: chest wall non-tender, decreased breath sounds Abdomen: normal bowel sounds, non tender, soft Extremities: normal inspection Edema: no edema noted Arm (L), no edema noted Arm (R), no edema noted Leg (L), no edema noted Leg (R), no edema noted Pedal (L), no edema noted Pedal (R), no edema noted Generalized Neurologic: motor weakness Skin: normal pigmentation, warm/dry Héctor Jean DO Apr 27, 2018 13:01
--- NOTE | 2018-04-27 15:10 | Pulmonology Progress Note ---
Assessment/Plan Problems: (1) Sepsis (2) Pneumonia (3) ATN (acute tubular necrosis) (4) Toxic metabolic encephalopathy (5) Severe protein-calorie malnutrition (6) Psychosis (7) Dementia Assessment/Plan improving iv fluids iv abx flores cultures check cxr in a few days check electrolytes renal w/u renal parameters improving swallow study dvt prophylaxis med/surg Subjective ROS Limited/Unobtainable: No Constitutional: Reports: no symptoms HEENT: Repors: no symptoms Respiratory: Reports: no symptoms Allergies: Coded Allergies: No Known Allergies (Unverified , 04/26/18) Objective Last 24 Hour Vital Signs Date Time Temp Pulse Resp B/P (MAP) Pulse Ox O2 Delivery O2 Flow Rate FiO2 04/27/18 12:00 97.0 76 21 126/68 96 Nasal Cannula 3.0 97.0 04/27/18 12:00 74 04/27/18 08:00 97.1 83 20 103/94 99 Nasal Cannula 3.0 97.1 04/27/18 08:00 71 04/27/18 07:55 96 Nasal Cannula 2.0 28 04/27/18 07:55 Nasal Cannula 2.0 28 04/27/18 07:55 100 18 Nasal Cannula 2.0 28 04/27/18 04:00 98.2 104 26 115/76 93 Nasal Cannula 3.0 98.2 04/27/18 04:00 102 04/27/18 00:00 84 04/27/18 00:00 97.5 97 36 162/72 98 Nasal Cannula 2.0 97.5 04/26/18 23:33 Nasal Cannula 2.0 28 04/26/18 23:31 95 Nasal Cannula 2.0 28 04/26/18 23:30 65 18 Nasal Cannula 2.0 28 04/26/18 22:59 98.1 67 18 120/72 97 Nasal Cannula 2.0 98.1 04/26/18 20:00 67 04/26/18 16:00 71 Intake and Output 04/26/18 04/27/18 19:00 07:00 Intake Total 55 ml 1000 ml Output Total 20 ml Balance 35 ml 1000 ml Intake IV Total 55 ml 1000 ml Output Urine Total 20 ml # Voids 1 General Appearance: cachetic HEENT: normocephalic, atraumatic Respiratory/Chest: chest wall non-tender, lungs clear Cardiovascular: normal peripheral pulses, normal rate Abdomen: normal bowel sounds, soft, non tender Genitourinary: normal external genitalia Extremities: no cyanosis 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 Lymphatic: no neck adenopathy Musculoskeletal: normal muscle bulk Microbiology Date/Time Source Procedure Growth Status 04/26/18 08:45 Nasal Nares Influenza Types A,B Antigen (IMMANUEL) - Final Complete Laboratory Tests 04/27/18 05:40: White Blood Count 17.5H, Red Blood Count 4.23L, Hemoglobin 12.4L, Hematocrit 39.0L, Mean Corpuscular Volume 92, Mean Corpuscular Hemoglobin 29.2, Mean Corpuscular Hemoglobin Concent 31.7L, Red Cell Distribution Width 16.3H, Platelet Count 392, Mean Platelet Volume 6.7, Neutrophils (%) (Auto) , Lymphocytes (%) (Auto) , Monocytes (%) (Auto) , Eosinophils (%) (Auto) , Basophils (%) (Auto) , Differential Total Cells Counted 100, Neutrophils % ( Manual) 88H, Lymphocytes % (Manual) 6L, Monocytes % (Manual) 6, Eosinophils % ( Manual) 0, Basophils % (Manual) 0, Band Neutrophils 0, Platelet Estimate Adequate, Platelet Morphology Normal, Red Blood Cell Morphology Normal, Sodium Level 160H, Potassium Level 3.5, Chloride Level 120H, Carbon Dioxide Level 31, Anion Gap 9, Blood Urea Nitrogen 64H, Creatinine 1.5H, Estimat Glomerular Filtration Rate , Glucose Level 153H, Calcium Level 8.8, Phosphorus Level 2.1L, Albumin 1.8L Current Medications Medications (Trade) Dose Ordered Sig/Jeronimo Route PRN Reason Start Time Stop Time Status Last Admin Dose Admin Acetaminophen (Tylenol) 650 mg Q4H PRN ORAL FEVER 04/26/18 08:45 05/26/18 08:44 Albuterol/ Ipratropium (Albuterol/ Ipratropium) 3 ml Q4H PRN HHN Shortness of Breath 04/26/18 08:45 05/01/18 08:44 Dextrose 1,000 ml @ 100 mls/hr Q10H IV 04/27/18 09:00 05/26/18 08:59 04/27/18 09:03 Dextrose (Dextrose 50%) 25 ml STAT PRN IV Hypoglycemia 04/26/18 08:45 05/26/18 08:44 Dextrose (Dextrose 50%) 50 ml STAT PRN IV Hypoglycemia 04/26/18 09:00 05/26/18 08:59 Heparin Sodium (Porcine) (Heparin 5000 units/ml) 5,000 units EVERY 12 HOURS SUBQ 04/26/18 12:00 05/26/18 11:59 04/27/18 08:30 Lorazepam (Ativan 2mg/ml 1ml) 2 mg Q2H PRN IV For Anxiety 04/26/18 08:45 05/03/18 08:44 Morphine Sulfate (Morphine Sulfate) 4 mg Q4H PRN IVP Severe Pain (Pain Scale 7-10) 04/26/18 08:45 05/03/18 08:44 Ondansetron HCl (Zofran) 4 mg Q6H PRN IVP Nausea & Vomiting 04/26/18 08:45 05/26/18 08:44 Pantoprazole (Protonix) 40 mg DAILY IV 04/26/18 12:00 05/26/18 11:59 04/27/18 08:29 Piperacillin Sod/ Tazobactam Sod 3.375 gm/Dextrose 110 ml @ 27.5 mls/hr EVERY 12 HOURS IVPB 04/27/18 21:00 05/02/18 20:59 Polyethylene Glycol (Miralax) 17 gm DAILYPRN PRN ORAL Constipation 04/26/18 08:45 05/26/18 08:44 Potassium Phosphate 15 mm/ Sodium Chloride 280 ml @ 46.667 mls/ hr ONCE ONCE IV 04/27/18 11:00 04/27/18 16:59 04/27/18 10:33 Trazodone HCl (Desyrel) 50 mg BEDTIME ORAL 04/26/18 21:00 05/26/18 20:59 Vancomycin HCl (Vanco rx to dose) 1 ea DAILY PRN MISC . 04/26/18 17:15 05/26/18 17:14 Melanie Christy MD Apr 27, 2018 15:10
[2018-04-27 16:00] VITALS: BP 108/62
[2018-04-27] MEDS ORDERED: Vancomycin 1250mg/D5W 250ml IVPB SCH (18:00)
--- NOTE | 2018-04-27 18:23 | Infectious Diseases Prog Note ---
Assessment/Plan Assessment/Plan Abx: IV Vanco 04/26- Zosyn 04/26- Assessment: Sepsis- 2ry to PNA; r/o bacteremia -u/a RBC TNTC, WBC 2-4, nit neg, leuk +1 -Bcx p -CXR Right infrahilar infiltrate; sp cx p Fever/leukocytosis; fever improving, leukocytosis slightly worse APOLONIA; improving ?bladder mass -US: Mild right hydronephrosis, etiology not demonstrated Trabeculated bladder with debris. Irregular posterior polypoid wall thickening could indicate the presence of a mass, and cystoscopy should be considered.. Dementia HTN anemia SNF resident Plan: -Continue empiric IV vanco #2 and switch Zosyn #2 To Meropenem pending cultures -f/u cx -monitor CBC/BMP, temperatures -aspiration precautions Thank you for this consultation. Will continue to follow along with you. Discussed with RN. Subjective Allergies: Coded Allergies: No Known Allergies (Unverified , 04/26/18) Subjective afebrile in ~24hrs WBC incrased at 3 L NC cx p Objective Vital Signs Last 24 Hour Vital Signs Date Time Temp Pulse Resp B/P (MAP) Pulse Ox O2 Delivery O2 Flow Rate FiO2 04/27/18 16:00 97.0 81 21 108/62 96 Nasal Cannula 3.0 97.0 04/27/18 16:00 74 04/27/18 12:00 97.0 76 21 126/68 96 Nasal Cannula 3.0 97.0 04/27/18 12:00 74 04/27/18 08:00 97.1 83 20 103/94 99 Nasal Cannula 3.0 97.1 04/27/18 08:00 71 04/27/18 07:55 96 Nasal Cannula 2.0 28 04/27/18 07:55 Nasal Cannula 2.0 28 04/27/18 07:55 100 18 Nasal Cannula 2.0 28 04/27/18 04:00 98.2 104 26 115/76 93 Nasal Cannula 3.0 98.2 04/27/18 04:00 102 04/27/18 00:00 84 04/27/18 00:00 97.5 97 36 162/72 98 Nasal Cannula 2.0 97.5 04/26/18 23:33 Nasal Cannula 2.0 28 04/26/18 23:31 95 Nasal Cannula 2.0 28 04/26/18 23:30 65 18 Nasal Cannula 2.0 28 04/26/18 22:59 98.1 67 18 120/72 97 Nasal Cannula 2.0 98.1 04/26/18 20:00 67 Height (Feet): 5 Height (Inches): 8.00 Weight (Pounds): 88 Objective General Appearance: normal inspection, well appearing, no apparent distress, non-toxic, cachetic, Chronically Ill HEENT:, atraumatic, PERRL, moist mucus membranes Neck: normal inspection, full range of motion, supple, no meningismus, no bony tend Respiratory: normal inspection, lungs clear, normal breath sounds, no rhonchi, no respiratory distress, no retraction, no accessory muscle use, no wheezing, decreased breath sounds, speaking full sentences, other - Poor respiratory effort Cardiovascular : regular rate, rhythm, no edema, no JVD, normal capillary refill Gastrointestinal: normal inspection, normal bowel sounds, non tender, soft, no mass, non-distended, no guarding Genitourinary: no CVA tenderness Musculoskeletal: normal inspection, back normal, normal range of motion, no calf tenderness, pelvis stable, other - bandage on right heel removed; healing stage 1 decub. No obvious infection Skin: normal inspection, normal color, no rash Microbiology Date/Time Source Procedure Growth Status 04/26/18 08:45 Nasal Nares Influenza Types A,B Antigen (IMMANUEL) - Final Complete Laboratory Tests Test 04/27/18 05:40 04/27/18 15:00 White Blood Count 17.5 K/UL (4.8-10.8) H Red Blood Count 4.23 M/UL (4.70-6.10) L Hemoglobin 12.4 G/DL (14.2-18.0) L Hematocrit 39.0 % (42.0-52.0) L Mean Corpuscular Volume 92 FL (80-99) Mean Corpuscular Hemoglobin 29.2 PG (27.0-31.0) Mean Corpuscular Hemoglobin Concent 31.7 G/DL (32.0-36.0) L Red Cell Distribution Width 16.3 % (11.6-14.8) H Platelet Count 392 K/UL (150-450) Mean Platelet Volume 6.7 FL (6.5-10.1) Neutrophils (%) (Auto) % (45.0-75.0) Lymphocytes (%) (Auto) % (20.0-45.0) Monocytes (%) (Auto) % (1.0-10.0) Eosinophils (%) (Auto) % (0.0-3.0) Basophils (%) (Auto) % (0.0-2.0) Differential Total Cells Counted 100 Neutrophils % (Manual) 88 % (45-75) H Lymphocytes % (Manual) 6 % (20-45) L Monocytes % (Manual) 6 % (1-10) Eosinophils % (Manual) 0 % (0-3) Basophils % (Manual) 0 % (0-2) Band Neutrophils 0 % (0-8) Platelet Estimate Adequate Platelet Morphology Normal Red Blood Cell Morphology Normal Sodium Level 160 MMOL/L (136-145) H 158 MMOL/L (136-145) H Potassium Level 3.5 MMOL/L (3.5-5.1) Chloride Level 120 MMOL/L (98-107) H Carbon Dioxide Level 31 MMOL/L (21-32) Anion Gap 9 mmol/L (5-15) Blood Urea Nitrogen 64 mg/dL (7-18) H Creatinine 1.5 MG/DL (0.55-1.30) H Estimat Glomerular Filtration Rate mL/min (>60) Glucose Level 153 MG/DL (74-106) H Calcium Level 8.8 MG/DL (8.5-10.1) Phosphorus Level 2.1 MG/DL (2.5-4.9) L Albumin 1.8 G/DL (3.4-5.0) L Current Medications Medications (Trade) Dose Ordered Sig/Jeronimo Route PRN Reason Start Time Stop Time Status Last Admin Dose Admin Acetaminophen (Tylenol) 650 mg Q4H PRN ORAL FEVER 04/26/18 08:45 05/26/18 08:44 Albuterol/ Ipratropium (Albuterol/ Ipratropium) 3 ml Q4H PRN HHN Shortness of Breath 04/26/18 08:45 05/01/18 08:44 Dextrose 1,000 ml @ 100 mls/hr Q10H IV 04/27/18 09:00 05/26/18 08:59 04/27/18 09:03 Dextrose (Dextrose 50%) 25 ml STAT PRN IV Hypoglycemia 04/26/18 08:45 05/26/18 08:44 Dextrose (Dextrose 50%) 50 ml STAT PRN IV Hypoglycemia 04/26/18 09:00 05/26/18 08:59 Heparin Sodium (Porcine) (Heparin 5000 units/ml) 5,000 units EVERY 12 HOURS SUBQ 04/26/18 12:00 05/26/18 11:59 04/27/18 08:30 Lorazepam (Ativan 2mg/ml 1ml) 2 mg Q2H PRN IV For Anxiety 04/26/18 08:45 05/03/18 08:44 Morphine Sulfate (Morphine Sulfate) 4 mg Q4H PRN IVP Severe Pain (Pain Scale 7-10) 04/26/18 08:45 05/03/18 08:44 Ondansetron HCl (Zofran) 4 mg Q6H PRN IVP Nausea & Vomiting 04/26/18 08:45 05/26/18 08:44 Pantoprazole (Protonix) 40 mg DAILY IV 04/26/18 12:00 05/26/18 11:59 04/27/18 08:29 Piperacillin Sod/ Tazobactam Sod 3.375 gm/Dextrose 110 ml @ 27.5 mls/hr EVERY 12 HOURS IVPB 04/27/18 21:00 05/02/18 20:59 Polyethylene Glycol (Miralax) 17 gm DAILYPRN PRN ORAL Constipation 04/26/18 08:45 05/26/18 08:44 Trazodone HCl (Desyrel) 50 mg BEDTIME ORAL 04/26/18 21:00 05/26/18 20:59 Vancomycin HCl (Vanco rx to dose) 1 ea DAILY PRN MISC . 04/26/18 17:15 05/26/18 17:14 Clarissa Jaime M.D. Apr 27, 2018 18:23
[2018-04-27] MEDS ORDERED: Tubing IV Secondary IV ONE (19:20)
[2018-04-27 20:00] VITALS: BP 117/65
[2018-04-27] MEDS ORDERED: LORazepam Inj 2mg/ml 1ml IV PRN (20:30)
[2018-04-27] MEDS ORDERED: Miralax 17gm pkt ORAL PRN (20:30)
[2018-04-27] MEDS ORDERED: Morphine Sulfate 4mg/ml Inj IVP PRN (20:45)
[2018-04-27] MEDS ORDERED: Albuterol/Ipratropium 3ml neb HHN PRN (20:45)
[2018-04-27] MEDS ORDERED: Piperacillin/Tazobactam 3.375 GM in D5W 110 ML IVPB SCH (21:00)
[2018-04-27] MEDS: Meropenem 500 MG in NS 55 ML IVPB SCH (21:00)
[2018-04-27] MEDS ORDERED: Meropenem 500 MG in NS 55 ML IVPB SCH (21:00)
[2018-04-27] MEDS: TraZODone 50mg tab ORAL SCH (21:16)
[2018-04-27] MEDS ORDERED: Vancomycin 1 GM in D5W 275 ML IV SCH (23:00)
[2018-04-28] VITALS: BP 120/66
[2018-04-28 04:00] VITALS: BP 105/70
[2018-04-28 07:54] LABS: ANION GAP 8 mmol/L (5-15); BLOOD UREA NITROGEN 41 mg/dL (7-18); CALCIUM 8.5 MG/DL (8.5-10.1); CARBON DIOXIDE 27 MMOL/L (21-32); CHLORIDE 115 MMOL/L (98-107); CREATININE 1.1 MG/DL (0.55-1.30); SODIUM 150 MMOL/L (136-145)
[2018-04-28 07:59] LABS: HEMOGLOBIN 11.7 G/DL (14.2-18.0); MEAN CORPUSCULAR VOLUME 91 FL (80-99); PLATELET COUNT 341 K/UL (150-450); RED BLOOD COUNT 4.08 M/UL (4.70-6.10); RED CELL DISTRIBUTION WIDTH 15.8 % (11.6-14.8); WHITE BLOOD COUNT 14.6 K/UL (4.8-10.8)
[2018-04-28 08:24] VITALS: BP 109/68
--- NOTE | 2018-04-28 08:25 | Nephrology Progress Note ---
Assessment/Plan Assessment/Plan 1. APOLONIA- due to volume depletion. Resolved. Cr 1.1 - renal US right mild hydro and poss bladder mass 2. Hypernatremia- DC D5W as Na down to 150 3. Hypokalemia- being replaced today again 4. PNA- per ID mgmt 5. Right [place] and poss Bladder Mass- Dr Ames of Urology consulted Thank you Dr Jean for allowing me to assist in the renal care of this patient Subjective Date patient seen: Apr 28, 2018 Time patient seen: 08:21 ROS Limited/Unobtainable: Yes Allergies: Coded Allergies: No Known Allergies (Unverified , 04/26/18) Subjective Patient awake, disorganized talk Objective Last 24 Hour Vital Signs Date Time Temp Pulse Resp B/P (MAP) Pulse Ox O2 Delivery O2 Flow Rate FiO2 04/28/18 04:00 98.4 80 20 105/70 97 Nasal Cannula 3.0 98.4 04/28/18 00:00 97.3 84 20 120/66 96 Nasal Cannula 3.0 97.3 04/27/18 20:31 Nasal Cannula 2.0 28 04/27/18 20:31 96 Nasal Cannula 2.0 28 04/27/18 20:30 80 20 Nasal Cannula 2.0 28 04/27/18 20:00 98.8 84 24 117/65 96 Nasal Cannula 3.0 98.8 04/27/18 16:00 97.0 81 21 108/62 96 Nasal Cannula 3.0 97.0 04/27/18 16:00 74 04/27/18 12:00 97.0 76 21 126/68 96 Nasal Cannula 3.0 97.0 04/27/18 12:00 74 Intake and Output 04/27/18 04/28/18 19:00 07:00 Intake Total 800 ml Balance 800 ml Intake IV Total 800 ml # Voids 2 4 Laboratory Tests 04/27/18 15:00: Sodium Level 158H 04/27/18 20:52: Sodium Level 154H 04/28/18 06:15: Sodium Level 150H, White Blood Count 14.6H, Red Blood Count 4.08L, Hemoglobin 11.7L, Hematocrit 37.0L, Mean Corpuscular Volume 91, Mean Corpuscular Hemoglobin 28.7, Mean Corpuscular Hemoglobin Concent 31.6L, Red Cell Distribution Width 15.8H, Platelet Count 341, Mean Platelet Volume 6.9, Neutrophils (%) (Auto) , Lymphocytes (%) (Auto) , Monocytes (%) (Auto) , Eosinophils (%) (Auto) , Basophils (%) (Auto) , Neutrophils % (Manual) [Pending] , Lymphocytes % (Manual) [Pending], Platelet Estimate [Pending], Platelet Morphology [Pending], Potassium Level 3.0L, Chloride Level 115H, Carbon Dioxide Level 27, Anion Gap 8, Blood Urea Nitrogen 41H, Creatinine 1.1, Estimat Glomerular Filtration Rate , Glucose Level 121H, Calcium Level 8.5, Random Vancomycin Level 4.0 Height (Feet): 5 Height (Inches): 8.00 Weight (Pounds): 88 General Appearance: no apparent distress, confused EENT: PERRL/EOMI Neck: normal alignment, supple Cardiovascular: normal rate, regular rhythm Respiratory/Chest: lungs clear, normal breath sounds Abdomen: non tender, soft Edema: no edema noted Arm (L), no edema noted Arm (R), no edema noted Leg (L), no edema noted Leg (R), no edema noted Pedal (L), no edema noted Pedal (R), no edema noted Generalized Merrill Freitas M.D. Apr 28, 2018 08:25
[2018-04-28] MEDS ORDERED: Tubing IV Secondary IV ONE (08:28)
[2018-04-28] MEDS: Pantoprazole Inj IV SCH (09:32)
[2018-04-28] MEDS: Heparin 5000 units/ml inj SUBQ SCH ×2 (09:33→21:19)
[2018-04-28] MEDS: Meropenem 500 MG in NS 55 ML IVPB SCH ×2 (09:45→21:19)
[2018-04-28] MEDS ORDERED: Vancomycin 750mg/NS 250ml IVPB SCH (10:00)
--- NOTE | 2018-04-28 11:07 | Infectious Diseases Prog Note ---
Assessment/Plan Assessment/Plan Abx: IV Vanco 04/26- Zosyn 04/26- Assessment: Sepsis- 2ry to PNA; r/o bacteremia -u/a RBC TNTC, WBC 2-4, nit neg, leuk +1 -Bcx NTD -CXR Right infrahilar infiltrate; sp cx ordered, not collected Fever/leukocytosis; improving APOLONIA; improving ?bladder mass -US: Mild right hydronephrosis, etiology not demonstrated Trabeculated bladder with debris. Irregular posterior polypoid wall thickening could indicate the presence of a mass, and cystoscopy should be considered.. Dementia HTN anemia SNF resident Plan: -Continue empiric IV vanco #3 and Meropenem #2 (abx d#3) pending cultures -04/27 SP Zosyn #2 -f/u cx -monitor CBC/BMP, temperatures -aspiration precautions Thank you for this consultation. Will continue to follow along with you. Discussed with RN. Subjective Allergies: Coded Allergies: No Known Allergies (Unverified , 04/26/18) Subjective afebrile in 36hrs WBC improving at 3 L NC sp cx not collected Bcx NTD Objective Vital Signs Last 24 Hour Vital Signs Date Time Temp Pulse Resp B/P (MAP) Pulse Ox O2 Delivery O2 Flow Rate FiO2 04/28/18 08:24 99.2 80 18 109/68 98 Nasal Cannula 3.0 99.2 04/28/18 04:00 98.4 80 20 105/70 97 Nasal Cannula 3.0 98.4 04/28/18 00:00 97.3 84 20 120/66 96 Nasal Cannula 3.0 97.3 04/27/18 20:31 Nasal Cannula 2.0 28 04/27/18 20:31 96 Nasal Cannula 2.0 28 04/27/18 20:30 80 20 Nasal Cannula 2.0 28 04/27/18 20:00 98.8 84 24 117/65 96 Nasal Cannula 3.0 98.8 04/27/18 16:00 97.0 81 21 108/62 96 Nasal Cannula 3.0 97.0 04/27/18 16:00 74 04/27/18 12:00 97.0 76 21 126/68 96 Nasal Cannula 3.0 97.0 04/27/18 12:00 74 Height (Feet): 5 Height (Inches): 8.00 Weight (Pounds): 88 Objective General Appearance: normal inspection, well appearing, no apparent distress, non-toxic, cachetic, Chronically Ill HEENT:, atraumatic, PERRL, moist mucus membranes Neck: normal inspection, full range of motion, supple, no meningismus, no bony tend Respiratory: normal inspection, lungs clear, normal breath sounds, no rhonchi, no respiratory distress, no retraction, no accessory muscle use, no wheezing, decreased breath sounds, speaking full sentences, other - Poor respiratory effort Cardiovascular : regular rate, rhythm, no edema, no JVD, normal capillary refill Gastrointestinal: normal inspection, normal bowel sounds, non tender, soft, no mass, non-distended, no guarding Genitourinary: no CVA tenderness Musculoskeletal: normal inspection, back normal, normal range of motion, no calf tenderness, pelvis stable, other - bandage on right heel removed; healing stage 1 decub. No obvious infection Skin: normal inspection, normal color, no rash Microbiology Date/Time Source Procedure Growth Status 04/26/18 08:05 Blood Blood Culture - Preliminary NO GROWTH AFTER 24 HOURS Resulted 04/26/18 08:00 Blood Blood Culture - Preliminary NO GROWTH AFTER 24 HOURS Resulted 04/26/18 08:45 Nasal Nares Influenza Types A,B Antigen (IMMANUEL) - Final Complete 04/26/18 09:29 Rectum VRE Culture - Final Enterococcus Faecium - Vre Complete Laboratory Tests Test 04/27/18 15:00 04/27/18 20:52 04/28/18 06:15 Sodium Level 158 MMOL/L (136-145) H 154 MMOL/L (136-145) H 150 MMOL/L (136-145) H White Blood Count 14.6 K/UL (4.8-10.8) H Red Blood Count 4.08 M/UL (4.70-6.10) L Hemoglobin 11.7 G/DL (14.2-18.0) L Hematocrit 37.0 % (42.0-52.0) L Mean Corpuscular Volume 91 FL (80-99) Mean Corpuscular Hemoglobin 28.7 PG (27.0-31.0) Mean Corpuscular Hemoglobin Concent 31.6 G/DL (32.0-36.0) L Red Cell Distribution Width 15.8 % (11.6-14.8) H Platelet Count 341 K/UL (150-450) Mean Platelet Volume 6.9 FL (6.5-10.1) Neutrophils (%) (Auto) % (45.0-75.0) Lymphocytes (%) (Auto) % (20.0-45.0) Monocytes (%) (Auto) % (1.0-10.0) Eosinophils (%) (Auto) % (0.0-3.0) Basophils (%) (Auto) % (0.0-2.0) Differential Total Cells Counted 100 Neutrophils % (Manual) 86 % (45-75) H Lymphocytes % (Manual) 10 % (20-45) L Monocytes % (Manual) 4 % (1-10) Eosinophils % (Manual) 0 % (0-3) Basophils % (Manual) 0 % (0-2) Band Neutrophils 0 % (0-8) Platelet Estimate Adequate Platelet Morphology Normal Hypochromasia 1+ Anisocytosis 1+ Potassium Level 3.0 MMOL/L (3.5-5.1) L Chloride Level 115 MMOL/L (98-107) H Carbon Dioxide Level 27 MMOL/L (21-32) Anion Gap 8 mmol/L (5-15) Blood Urea Nitrogen 41 mg/dL (7-18) H Creatinine 1.1 MG/DL (0.55-1.30) Estimat Glomerular Filtration Rate mL/min (>60) Glucose Level 121 MG/DL (74-106) H Calcium Level 8.5 MG/DL (8.5-10.1) Random Vancomycin Level 4.0 ug/mL Current Medications Medications (Trade) Dose Ordered Sig/Jeronimo Route PRN Reason Start Time Stop Time Status Last Admin Dose Admin Acetaminophen (Tylenol) 650 mg Q4H PRN ORAL T>100.5 04/27/18 20:45 05/26/18 08:44 Albuterol/ Ipratropium (Albuterol/ Ipratropium) 3 ml Q4H PRN HHN Shortness of Breath 04/27/18 20:45 05/01/18 08:44 Dextrose (Dextrose 50%) 25 ml STAT PRN IV Hypoglycemia 04/27/18 20:30 05/27/18 20:29 Dextrose (Dextrose 50%) 50 ml STAT PRN IV Hypoglycemia 04/27/18 20:30 05/27/18 20:29 Heparin Sodium (Porcine) (Heparin 5000 units/ml) 5,000 units EVERY 12 HOURS SUBQ 04/27/18 21:00 05/26/18 11:59 04/28/18 09:33 Lorazepam (Ativan 2mg/ml 1ml) 2 mg Q2H PRN IV For Anxiety 04/27/18 20:30 05/03/18 20:29 Meropenem 500 mg/ Sodium Chloride 55 ml @ 110 mls/hr EVERY 12 HOURS IVPB 04/27/18 21:00 05/02/18 20:59 04/28/18 09:45 Morphine Sulfate (Morphine Sulfate) 4 mg Q4H PRN IVP Severe Pain (Pain Scale 7-10) 04/27/18 20:45 05/03/18 08:44 Ondansetron HCl (Zofran) 4 mg Q6H PRN IVP Nausea & Vomiting 04/27/18 20:45 05/26/18 08:44 Pantoprazole (Protonix) 40 mg DAILY IV 04/28/18 09:00 05/26/18 11:59 04/28/18 09:32 Polyethylene Glycol (Miralax) 17 gm DAILYPRN PRN ORAL Constipation 04/27/18 20:30 05/27/18 20:29 Trazodone HCl (Desyrel) 50 mg BEDTIME ORAL 04/27/18 21:00 05/26/18 20:59 04/27/18 21:16 Vancomycin HCl (Vanco rx to dose) 1 ea DAILY PRN MISC . 04/27/18 20:30 05/27/18 20:29 Vancomycin/Sodium Chloride 250 ml @ 166.667 mls/hr Q36H IVPB 04/28/18 10:00 05/03/18 09:59 Clarissa Jaime M.D. Apr 28, 2018 11:07
[2018-04-28 11:50] VITALS: BP 142/75
--- NOTE | 2018-04-28 13:52 | General Progress Note ---
Assessment/Plan Problem List: (1) UTI (urinary tract infection) ICD Codes: N39.0 - Urinary tract infection, site not specified SNOMED: 94193246 (2) Sepsis ICD Codes: A41.9 - Sepsis, unspecified organism SNOMED: 08354977 (3) Fever ICD Codes: R50.9 - Fever, unspecified SNOMED: 302580891 Qualifiers: Qualified Codes: R50.9 - Fever, unspecified (4) Hypernatremia ICD Codes: E87.0 - Hyperosmolality and hypernatremia SNOMED: 91168566 (5) CKD (chronic kidney disease) ICD Codes: N18.9 - Chronic kidney disease, unspecified SNOMED: 657214857 Qualifiers: Qualified Codes: N18.9 - Chronic kidney disease, unspecified (6) Elevated troponin ICD Codes: R74.8 - Abnormal levels of other serum enzymes SNOMED: 033368782, 826287667, 710675480 (7) Pneumonia ICD Codes: J18.9 - Pneumonia, unspecified organism SNOMED: 125383164 Qualifiers: Qualified Codes: J18.1 - Lobar pneumonia, unspecified organism Status: stable, progressing Assessment/Plan ot pt diet ivf abx cbc bmp am ltach eval Subjective Constitutional: Reports: weakness Allergies: Coded Allergies: No Known Allergies (Unverified , 04/26/18) All Systems: reviewed and negative except above Subjective o2nc sleepy Objective Last 24 Hour Vital Signs Date Time Temp Pulse Resp B/P (MAP) Pulse Ox O2 Delivery O2 Flow Rate FiO2 04/28/18 11:50 98.4 83 18 142/75 100 Nasal Cannula 3.0 98.4 04/28/18 08:24 99.2 80 18 109/68 98 Nasal Cannula 3.0 99.2 04/28/18 04:00 98.4 80 20 105/70 97 Nasal Cannula 3.0 98.4 04/28/18 00:00 97.3 84 20 120/66 96 Nasal Cannula 3.0 97.3 04/27/18 20:31 Nasal Cannula 2.0 28 04/27/18 20:31 96 Nasal Cannula 2.0 28 04/27/18 20:30 80 20 Nasal Cannula 2.0 28 04/27/18 20:00 98.8 84 24 117/65 96 Nasal Cannula 3.0 98.8 6/13/18 16:00 97.0 81 21 108/62 96 Nasal Cannula 3.0 97.0 04/27/18 16:00 74 Intake and Output 04/27/18 04/28/18 19:00 07:00 Intake Total 800 ml Balance 800 ml Intake IV Total 800 ml # Voids 2 4 Laboratory Tests 04/27/18 15:00: Sodium Level 158H 04/27/18 20:52: Sodium Level 154H 04/28/18 06:15: Sodium Level 150H, White Blood Count 14.6H, Red Blood Count 4.08L, Hemoglobin 11.7L, Hematocrit 37.0L, Mean Corpuscular Volume 91, Mean Corpuscular Hemoglobin 28.7, Mean Corpuscular Hemoglobin Concent 31.6L, Red Cell Distribution Width 15.8H, Platelet Count 341, Mean Platelet Volume 6.9, Neutrophils (%) (Auto) , Lymphocytes (%) (Auto) , Monocytes (%) (Auto) , Eosinophils (%) (Auto) , Basophils (%) (Auto) , Differential Total Cells Counted 100, Neutrophils % (Manual) 86H, Lymphocytes % (Manual) 10L, Monocytes % (Manual) 4, Eosinophils % (Manual) 0, Basophils % (Manual) 0, Band Neutrophils 0, Platelet Estimate Adequate, Platelet Morphology Normal, Hypochromasia 1+, Anisocytosis 1+, Potassium Level 3.0L, Chloride Level 115H, Carbon Dioxide Level 27, Anion Gap 8, Blood Urea Nitrogen 41H, Creatinine 1.1, Estimat Glomerular Filtration Rate , Glucose Level 121H, Calcium Level 8.5, Random Vancomycin Level 4.0 Height (Feet): 5 Height (Inches): 8.00 Weight (Pounds): 88 General Appearance: lethargic EENT: normal ENT inspection Neck: normal alignment Cardiovascular: normal peripheral pulses, normal rate, regular rhythm Respiratory/Chest: chest wall non-tender, decreased breath sounds Abdomen: normal bowel sounds, non tender, soft Extremities: normal inspection Edema: no edema noted Arm (L), no edema noted Arm (R), no edema noted Leg (L), no edema noted Leg (R), no edema noted Pedal (L), no edema noted Pedal (R), no edema noted Generalized Neurologic: motor weakness Skin: normal pigmentation, warm/dry Jean,Héctor Chi-Leslie DO Apr 28, 2018 13:52
--- NOTE | 2018-04-28 14:08 | Pulmonology Progress Note ---
Assessment/Plan Problems: (1) Sepsis (2) Pneumonia (3) ATN (acute tubular necrosis) (4) Toxic metabolic encephalopathy (5) Severe protein-calorie malnutrition (6) Psychosis (7) Dementia Assessment/Plan improving iv fluids iv abx flores cultures check cxr in a few days check electrolytes renal w/u renal parameters improving dvt prophylaxis Subjective ROS Limited/Unobtainable: No Constitutional: Reports: no symptoms HEENT: Repors: no symptoms Allergies: Coded Allergies: No Known Allergies (Unverified , 04/26/18) Objective Last 24 Hour Vital Signs Date Time Temp Pulse Resp B/P (MAP) Pulse Ox O2 Delivery O2 Flow Rate FiO2 04/28/18 11:50 98.4 83 18 142/75 100 Nasal Cannula 3.0 98.4 04/28/18 08:24 99.2 80 18 109/68 98 Nasal Cannula 3.0 99.2 04/28/18 04:00 98.4 80 20 105/70 97 Nasal Cannula 3.0 98.4 04/28/18 00:00 97.3 84 20 120/66 96 Nasal Cannula 3.0 97.3 04/27/18 20:31 Nasal Cannula 2.0 28 04/27/18 20:31 96 Nasal Cannula 2.0 28 04/27/18 20:30 80 20 Nasal Cannula 2.0 28 04/27/18 20:00 98.8 84 24 117/65 96 Nasal Cannula 3.0 98.8 04/27/18 16:00 97.0 81 21 108/62 96 Nasal Cannula 3.0 97.0 04/27/18 16:00 74 Intake and Output 04/27/18 04/28/18 19:00 07:00 Intake Total 800 ml Balance 800 ml Intake IV Total 800 ml # Voids 2 4 General Appearance: WD/WN HEENT: normocephalic Respiratory/Chest: chest wall non-tender, normal breath sounds Cardiovascular: normal peripheral pulses, normal rate Abdomen: normal bowel sounds Microbiology Date/Time Source Procedure Growth Status 04/26/18 08:05 Blood Blood Culture - Preliminary NO GROWTH AFTER 24 HOURS Resulted 04/26/18 08:00 Blood Blood Culture - Preliminary NO GROWTH AFTER 24 HOURS Resulted 04/26/18 09:29 Nasal Nares MRSA Culture - Final NO METHICILLIN RESISTANT STAPH AUREUS... Complete 04/26/18 08:45 Nasal Nares Influenza Types A,B Antigen (IMMANUEL) - Final Complete 04/26/18 09:29 Rectum VRE Culture - Final Enterococcus Faecium - Vre Complete Laboratory Tests 04/27/18 15:00: Sodium Level 158H 04/27/18 20:52: Sodium Level 154H 04/28/18 06:15: Sodium Level 150H, White Blood Count 14.6H, Red Blood Count 4.08L, Hemoglobin 11.7L, Hematocrit 37.0L, Mean Corpuscular Volume 91, Mean Corpuscular Hemoglobin 28.7, Mean Corpuscular Hemoglobin Concent 31.6L, Red Cell Distribution Width 15.8H, Platelet Count 341, Mean Platelet Volume 6.9, Neutrophils (%) (Auto) , Lymphocytes (%) (Auto) , Monocytes (%) (Auto) , Eosinophils (%) (Auto) , Basophils (%) (Auto) , Differential Total Cells Counted 100, Neutrophils % (Manual) 86H, Lymphocytes % (Manual) 10L, Monocytes % (Manual) 4, Eosinophils % (Manual) 0, Basophils % (Manual) 0, Band Neutrophils 0, Platelet Estimate Adequate, Platelet Morphology Normal, Hypochromasia 1+, Anisocytosis 1+, Potassium Level 3.0L, Chloride Level 115H, Carbon Dioxide Level 27, Anion Gap 8, Blood Urea Nitrogen 41H, Creatinine 1.1, Estimat Glomerular Filtration Rate , Glucose Level 121H, Calcium Level 8.5, Random Vancomycin Level 4.0 Current Medications Medications (Trade) Dose Ordered Sig/Jeronimo Route PRN Reason Start Time Stop Time Status Last Admin Dose Admin Acetaminophen (Tylenol) 650 mg Q4H PRN ORAL T>100.5 04/27/18 20:45 05/26/18 08:44 Albuterol/ Ipratropium (Albuterol/ Ipratropium) 3 ml Q4H PRN HHN Shortness of Breath 04/27/18 20:45 05/01/18 08:44 Dextrose (Dextrose 50%) 25 ml STAT PRN IV Hypoglycemia 04/27/18 20:30 05/27/18 20:29 Dextrose (Dextrose 50%) 50 ml STAT PRN IV Hypoglycemia 04/27/18 20:30 05/27/18 20:29 Heparin Sodium (Porcine) (Heparin 5000 units/ml) 5,000 units EVERY 12 HOURS SUBQ 04/27/18 21:00 05/26/18 11:59 04/28/18 09:33 Lorazepam (Ativan 2mg/ml 1ml) 2 mg Q2H PRN IV For Anxiety 04/27/18 20:30 05/03/18 20:29 Meropenem 500 mg/ Sodium Chloride 55 ml @ 110 mls/hr EVERY 12 HOURS IVPB 04/27/18 21:00 05/02/18 20:59 04/28/18 09:45 Morphine Sulfate (Morphine Sulfate) 4 mg Q4H PRN IVP Severe Pain (Pain Scale 7-10) 04/27/18 20:45 05/03/18 08:44 Ondansetron HCl (Zofran) 4 mg Q6H PRN IVP Nausea & Vomiting 04/27/18 20:45 05/26/18 08:44 Pantoprazole (Protonix) 40 mg DAILY IV 04/28/18 09:00 05/26/18 11:59 04/28/18 09:32 Polyethylene Glycol (Miralax) 17 gm DAILYPRN PRN ORAL Constipation 04/27/18 20:30 05/27/18 20:29 Trazodone HCl (Desyrel) 50 mg BEDTIME ORAL 04/27/18 21:00 05/26/18 20:59 04/27/18 21:16 Vancomycin HCl (Vanco rx to dose) 1 ea DAILY PRN MISC . 04/27/18 20:30 05/27/18 20:29 Vancomycin/Sodium Chloride 250 ml @ 166.667 mls/hr Q36H IVPB 04/28/18 10:00 05/03/18 09:59 Melanie Christy MD Apr 28, 2018 14:08
--- NOTE | 2018-04-28 15:19 | Cardiology Report ---
APPROVED REPORT EKG Measurement Heart [id number] SD [id number] [id number] Sinus rhythm with occasional premature ventricular complexes Possible Left atrial enlargement Nonspecific ST abnormality Abnormal ECG
[2018-04-28 16:00] VITALS: BP 125/75
[2018-04-28 20:00] VITALS: BP 139/79
--- NOTE | 2018-04-28 20:38 | Consultation ---
Consult Note Consult Note NEUROLOGY CONSULTATION: Full note dictated #[id number] 82 y/o, ?H, CM with PH of HTN, CKD, dementia, severe contractures, and severe debility. He lives in a NH when he was noted to have a fever. He was sent to the [facility] ER where he was noted to have a pneumonia, sepsis and acute on chronic renal failure. This consult was requested to evaluate the patient for an alteration in MS. ON EXAM: Aphasic and unable to communicate. Only screams on painful stimuli and mumbles. CN: No focality. 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 Superadded encephalopathy due to infection, renal dysfunction. Poor prognosis. REC: Agree with Rx Tx of infection Rx of renal dysfunction as per television technician. Thomas Arita M.D., M.S.P.H. THOMAS ARITA Apr 28, 2018 20:38
[2018-04-28] MEDS: TraZODone 50mg tab ORAL SCH (21:19)
--- NOTE | 2018-04-28 23:15 | Consultation ---
DATE OF CONSULTATION: 04/28/2018 NEUROLOGY CONSULTATION CONSULTING PHYSICIAN: Donato Arita M.D. REQUESTING PHYSICIAN: Héctor Jean D.O. HISTORY: Mr. Ananda Fields is an 82-year-old, gentleman, of unknown handedness, who does have past history of hypertension, chronic kidney disease, dementia, severe lower extremity contractures, and severe debility. He apparently lives in a alf where he was noted to have fever and altered mental state. He was sent to the [facility] Emergency Room for further management. On being evaluated in the emergency room, he was found to have a pneumonia, had acute on chronic renal failure, and was septic. He has been treated with appropriate antibiotics, fluids, and electrolytes and he continues to have an altered mental state and thus this consultation was requested. The patient himself is unable to give me any history as he is severely aphasic. PAST MEDICAL HISTORY: Significant for hypertension, chronic kidney disease, dementia, and severe debility. FAMILY HISTORY: Unavailable. PERSONAL HISTORY: Home: He lives in alf. Work: He is retired now, it is unclear as to what kind of work he did in the past. Habits: None at this point in time. MEDICATIONS: Vancomycin, pantoprazole, he was on Zosyn earlier, meropenem, heparin for DVT prophylaxis, trazodone, Tylenol, DuoNeb, morphine, Zofran, Ativan, and MiraLAX. PHYSICAL EXAMINATION: GENERAL: He is a well-developed, but lean, cachectic-looking gentleman, lying in bed with his head turned to the left side and his lower extremities in flexion contractures. VITAL SIGNS: Pulse 83/minute, blood pressure 125/75 mmHg, respirations 20/minute, and temperature 98.1 degrees Fahrenheit. HEAD: Normocephalic and atraumatic. EENT: Examination benign. NECK: No neck rigidity was observed. NEUROLOGIC EXAMINATION: MENTAL STATUS EXAMINATION: He was awake, but not completely alert. He was severely aphasic making it impossible for him to communicate and impossible for us to test his mental status. SPEECH: He was able to make some unintelligible mumbling sounds and in addition, he also screamed when deep painful stimuli were applied. He however was unable to communicate in any other manner. LANGUAGE: He was aphasic. CRANIAL NERVE EXAMINATION: II: He did blink to threat. III, IV & : External ocular movements were present on oculocephalic maneuvers. The pupils were 3 mm in diameter and did not react to light. V & VII: The corneal reflexes were equally brisk. VIII: He did respond to sounds and had no nystagmus. IX & X: The gag reflex was present, but subdued. XI: Sternocleidomastoids and trapezii did function. XII: The tongue was in the midline. MOTOR SYSTEM: The tone was increased in all four extremities with severe degree of spasticity and gegenhalten. In addition, he also had severe bilateral lower extremity contractures and mild upper extremity contractures in flexion. Power could not be tested on individual muscle groups. He did move all four extremities minimally. 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 SENSORY EXAMINATION: He only responded to deep pain with withdrawal and screamed. REFLEXES: 0 at the biceps, triceps, brachioradialis, knees, and ankles. The plantar responses were extensor bilaterally. COORDINATION, STANCE & GAIT: Could not be tested. DIAGNOSTIC IMPRESSION: 1. Mr. Ananda Fields is an 82-year-old, gentleman, of unknown handedness, who does have past history of hypertension, dementia, chronic kidney disease, severe debility, and lives in a alf. He was noted to have fever and altered mental state there and as a result of that was sent to the [facility] Emergency Room where he was noted to have pneumonia, sepsis, and acute on chronic renal failure. He has exhibited an alteration in his mental state, however, nowhere in the chart is it clear as to what his baseline mental status was. 2. On neurological examination at this time, he is aphasic and thus unable to communicate in a meaningful manner. He only responds to deep painful stimuli with screams and mumbles. He however does not demonstrate any definite focality on cranial nerve examination. On motor examination, he has a spastic quadriparesis involving the lower extremities significantly more than the upper extremities and in addition has severe contractures involving the lower extremities more than the upper extremities. He does respond to deep pain with minimal withdrawal. His deep tendon reflexes are absent and his plantar responses are extensor. 3. Laboratory data on admission revealed a WBC count elevated to 16,500 and an anemia with hemoglobin of 13.7. The sodium was elevated to 161, chloride elevated to 122, BUN elevated to 65, creatinine elevated to 1.5, glucose elevated to 149, and albumin low at 1.8. His urinalysis revealed 1+ leukocyte esterase, too numerous to count red blood cells, and 2-4 white blood cells per high-power field. 4. The patient's history, neurological examination, and laboratory data are most compatible with an advanced dementia, the exact type of which is unclear. 5. In addition, he also seems to have superadded encephalopathy due to the ongoing infectious process and renal dysfunction associated with severe dehydration that he came in with. 6. The prognosis for recovery of neurological function is poor because he most probably has a significantly advanced dementia. RECOMMENDATIONS: 1. Agree with management thus far. 2. Continue treatment of acute infectious process, dehydration, and renal dysfunction. 3. The patient will be observed closely and depending on how he fares over the next day or so, further recommendations will be given. Thank you for entrusting me with the care of Mr. Fields. I shall follow him with you. Donato Arita M.D., M.S.P.H. DR: ABEL JOB#: [id number] MTDD
[2018-04-29] VITALS: BP 115/75
[2018-04-29 04:00] VITALS: BP 122/79
[2018-04-29 06:27] LABS: HEMATOCRIT 36.7 % (42.0-52.0); HEMOGLOBIN 11.7 G/DL (14.2-18.0); MEAN CORPUSCULAR VOLUME 90 FL (80-99); PLATELET COUNT 285 K/UL (150-450); RED BLOOD COUNT 4.08 M/UL (4.70-6.10); RED CELL DISTRIBUTION WIDTH 15.2 % (11.6-14.8); WHITE BLOOD COUNT 14.1 K/UL (4.8-10.8)
[2018-04-29 06:51] LABS: ALANINE AMINOTRANSFERASE 29 U/L (12-78); ALBUMIN 1.5 G/DL (3.4-5.0); ALBUMIN/GLOBULIN RATIO 0.3 (1.0-2.7); ALKALINE PHOSPHATASE 68 U/L (46-116); ANION GAP 10 mmol/L (5-15); ASPARTATE AMINO TRANSFERASE 46 U/L (15-37); BILIRUBIN,TOTAL 0.8 MG/DL (0.2-1.0); BLOOD UREA NITROGEN 28 mg/dL (7-18); CALCIUM 8.2 MG/DL (8.5-10.1); CARBON DIOXIDE 27 MMOL/L (21-32); CHLORIDE 112 MMOL/L (98-107); POTASSIUM 3.1 MMOL/L (3.5-5.1); SODIUM 148 MMOL/L (136-145)
[2018-04-29 07:31] LABS: PHOSPHORUS 2.1 MG/DL (2.5-4.9)
[2018-04-29 08:00] VITALS: BP 130/73
[2018-04-29] MEDS: Pantoprazole Inj IV SCH (09:34)
[2018-04-29] MEDS: Heparin 5000 units/ml inj SUBQ SCH (09:35)
--- NOTE | 2018-04-29 09:36 | Nephrology Progress Note ---
Assessment/Plan Assessment/Plan 1. APOLONIA- resolved 2. Hypernatremia- resolved. Na down to 148 off D5W 3. Hypokalemia- replace 4. PNA- per ID mgmt 5. Right [place] and poss Bladder Mass- Dr Ames of Urology consulted Thank you Dr Jean for allowing me to assist in the renal care of this patient Subjective Date patient seen: Apr 29, 2018 Time patient seen: 09:34 ROS Limited/Unobtainable: Yes Allergies: Coded Allergies: No Known Allergies (Unverified , 04/26/18) Subjective Patient arousable, no overt distress Objective Last 24 Hour Vital Signs Date Time Temp Pulse Resp B/P (MAP) Pulse Ox O2 Delivery O2 Flow Rate FiO2 04/29/18 08:00 98.0 79 17 130/73 97 Nasal Cannula 3.0 98.0 04/29/18 04:00 98.0 82 20 122/79 99 Nasal Cannula 3.0 98.0 04/29/18 00:00 99.3 86 20 115/75 100 Nasal Cannula 3.0 99.3 04/28/18 20:00 98.2 85 20 139/79 100 Nasal Cannula 3.0 98.2 04/28/18 19:33 83 20 Nasal Cannula 2.0 28 04/28/18 19:33 Nasal Cannula 2.0 28 04/28/18 19:33 97 Nasal Cannula 2.0 28 04/28/18 16:00 98.1 84 22 125/75 99 Nasal Cannula 3.0 98.1 04/28/18 11:50 98.4 83 18 142/75 100 Nasal Cannula 3.0 98.4 Intake and Output 04/28/18 04/29/18 19:00 07:00 Intake Total 276.667 ml 55 ml Balance 276.667 ml 55 ml Intake IV Total 276.667 ml 55 ml # Voids 2 1 Laboratory Tests 04/29/18 05:30: White Blood Count 14.1H, Red Blood Count 4.08L, Hemoglobin 11.7L, Hematocrit 36.7L, Mean Corpuscular Volume 90, Mean Corpuscular Hemoglobin 28.7, Mean Corpuscular Hemoglobin Concent 31.9L, Red Cell Distribution Width 15.2H, Platelet Count 285, Mean Platelet Volume 6.9, Neutrophils (%) (Auto) , Lymphocytes (%) (Auto) , Monocytes (%) (Auto) , Eosinophils (%) (Auto) , Basophils (%) (Auto) , Differential Total Cells Counted 100, Neutrophils % ( Manual) 94H, Lymphocytes % (Manual) 4L, Monocytes % (Manual) 2, Eosinophils % ( Manual) 0, Basophils % (Manual) 0, Band Neutrophils 0, Nucleated Red Blood Cells 1, Platelet Estimate Adequate, Platelet Morphology Normal, Anisocytosis 2+ , Sodium Level 148H, Potassium Level 3.1L, Chloride Level 112H, Carbon Dioxide Level 27, Anion Gap 10, Blood Urea Nitrogen 28H, Creatinine 1.0, Estimat Glomerular Filtration Rate , Glucose Level 125H, Calcium Level 8.2L, Phosphorus Level 2.1L, Magnesium Level 1.9, Total Bilirubin 0.8, Aspartate Amino Transf ( AST/SGOT) 46H, Alanine Aminotransferase (ALT/SGPT) 29, Alkaline Phosphatase 68, Total Protein 7.1, Albumin 1.5L, Globulin 5.6, Albumin/Globulin Ratio 0.3L Height (Feet): 5 Height (Inches): 8.00 Weight (Pounds): 88 General Appearance: no apparent distress EENT: normal ENT inspection Neck: normal alignment, supple Cardiovascular: normal rate, regular rhythm Respiratory/Chest: lungs clear, normal breath sounds Abdomen: non tender, soft Edema: no edema noted Arm (L), no edema noted Arm (R), no edema noted Leg (L), no edema noted Leg (R), no edema noted Pedal (L), no edema noted Pedal (R), no edema noted Generalized Merrill Freitas M.D. Apr 29, 2018 09:36
[2018-04-29] MEDS: Meropenem 500 MG in NS 55 ML IVPB SCH (09:59)
--- NOTE | 2018-04-29 10:42 | General Progress Note ---
Assessment/Plan Problem List: (1) UTI (urinary tract infection) ICD Codes: N39.0 - Urinary tract infection, site not specified SNOMED: 07205376 (2) Sepsis ICD Codes: A41.9 - Sepsis, unspecified organism SNOMED: 74606462 (3) Fever ICD Codes: R50.9 - Fever, unspecified SNOMED: 126361069 Qualifiers: Qualified Codes: R50.9 - Fever, unspecified (4) Hypernatremia ICD Codes: E87.0 - Hyperosmolality and hypernatremia SNOMED: 69302607 (5) CKD (chronic kidney disease) ICD Codes: N18.9 - Chronic kidney disease, unspecified SNOMED: 885194389 Qualifiers: Qualified Codes: N18.9 - Chronic kidney disease, unspecified (6) Elevated troponin ICD Codes: R74.8 - Abnormal levels of other serum enzymes SNOMED: 944626330, 961970836, 312899194 (7) Pneumonia ICD Codes: J18.9 - Pneumonia, unspecified organism SNOMED: 081880353 Qualifiers: Qualified Codes: J18.1 - Lobar pneumonia, unspecified organism (8) FTT (failure to thrive) in adult ICD Codes: R62.7 - Adult failure to thrive SNOMED: 997443326 Assessment/Plan ot pt diet ivf abx cbc bmp am ltach eval gi eval Subjective Constitutional: Reports: weakness Allergies: Coded Allergies: No Known Allergies (Unverified , 04/26/18) All Systems: reviewed and negative except above Subjective o2nc sleepy Objective Last 24 Hour Vital Signs Date Time Temp Pulse Resp B/P (MAP) Pulse Ox O2 Delivery O2 Flow Rate FiO2 04/29/18 08:11 Nasal Cannula 2.0 28 04/29/18 08:10 97 Nasal Cannula 2.0 28 04/29/18 08:09 75 18 Nasal Cannula 2.0 28 04/29/18 08:00 98.0 79 17 130/73 97 Nasal Cannula 3.0 98.0 04/29/18 04:00 98.0 82 20 122/79 99 Nasal Cannula 3.0 98.0 04/29/18 00:00 99.3 86 20 115/75 100 Nasal Cannula 3.0 99.3 04/28/18 20:00 98.2 85 20 139/79 100 Nasal Cannula 3.0 98.2 04/28/18 19:33 83 20 Nasal Cannula 2.0 28 04/28/18 19:33 Nasal Cannula 2.0 28 04/28/18 19:33 97 Nasal Cannula 2.0 28 04/28/18 16:00 98.1 84 22 125/75 99 Nasal Cannula 3.0 98.1 04/28/18 11:50 98.4 83 18 142/75 100 Nasal Cannula 3.0 98.4 Intake and Output 04/28/18 04/29/18 19:00 07:00 Intake Total 276.667 ml 55 ml Balance 276.667 ml 55 ml Intake IV Total 276.667 ml 55 ml # Voids 2 1 Laboratory Tests 04/29/18 05:30: White Blood Count 14.1H, Red Blood Count 4.08L, Hemoglobin 11.7L, Hematocrit 36.7L, Mean Corpuscular Volume 90, Mean Corpuscular Hemoglobin 28.7, Mean Corpuscular Hemoglobin Concent 31.9L, Red Cell Distribution Width 15.2H, Platelet Count 285, Mean Platelet Volume 6.9, Neutrophils (%) (Auto) , Lymphocytes (%) (Auto) , Monocytes (%) (Auto) , Eosinophils (%) (Auto) , Basophils (%) (Auto) , Differential Total Cells Counted 100, Neutrophils % ( Manual) 94H, Lymphocytes % (Manual) 4L, Monocytes % (Manual) 2, Eosinophils % ( Manual) 0, Basophils % (Manual) 0, Band Neutrophils 0, Nucleated Red Blood Cells 1, Platelet Estimate Adequate, Platelet Morphology Normal, Anisocytosis 2+ , Sodium Level 148H, Potassium Level 3.1L, Chloride Level 112H, Carbon Dioxide Level 27, Anion Gap 10, Blood Urea Nitrogen 28H, Creatinine 1.0, Estimat Glomerular Filtration Rate , Glucose Level 125H, Calcium Level 8.2L, Phosphorus Level 2.1L, Magnesium Level 1.9, Total Bilirubin 0.8, Aspartate Amino Transf ( AST/SGOT) 46H, Alanine Aminotransferase (ALT/SGPT) 29, Alkaline Phosphatase 68, Total Protein 7.1, Albumin 1.5L, Globulin 5.6, Albumin/Globulin Ratio 0.3L Height (Feet): 5 Height (Inches): 8.00 Weight (Pounds): 88 General Appearance: lethargic EENT: normal ENT inspection Neck: normal alignment Cardiovascular: normal peripheral pulses, normal rate, regular rhythm Respiratory/Chest: chest wall non-tender, decreased breath sounds Abdomen: normal bowel sounds, non tender, soft Extremities: normal inspection Edema: no edema noted Arm (L), no edema noted Arm (R), no edema noted Leg (L), no edema noted Leg (R), no edema noted Pedal (L), no edema noted Pedal (R), no edema noted Generalized Neurologic: motor weakness Skin: normal pigmentation, warm/dry Héctor Jean DO Apr 29, 2018 10:42
[2018-04-29 12:00] VITALS: BP 134/79
[2018-04-29 12:30] VITALS: BP 134/79
--- NOTE | 2018-04-29 12:32 | GI Initial Consult Note ---
History of Present Illness General Date patient seen: Apr 29, 2018 Time patient seen: 12:22 Reason for Hospitalization: Fever Referring physician: STEFFANY ORTEGA Reason for Consultation: FTT Present Illness HPI 82YOM BIBEMS from SNF for "fever." No other associated symptoms reported by SNF staff to EMS At baseline, patient nonverbal HPI otherwise limited had fever 101 at SNF Now to 99 after SNF gave tylenol per paperwork, history of dementia, HTN, APOLONIA, anemia GI consulted for FTT. Pt seen, awake NAD with no active N/V/D. Per RN report, the patient has had minimal to little PO intake the past 2 days. He is currently on a puree diet. Labs reviewed show mild leukocytosis, normocytic anemia, electrolyte imbalance and hypoalbuminemia. Unknown history of endoscopy / colonoscopies. No family noted in the facesheet. Home Meds Reported Medications Valproic Acid (Depakene) 250 Mg Capsule, 500 MG ORAL BID, CAP 04/26/18 Trazodone* (TRAZODONE*) 150 Mg Tablet, 50 MG ORAL BEDTIME, TAB 04/26/18 Sennosides (SENNA) 8.6 Mg Tablet, 8.6 MG PO DAILY, TAB 04/26/18 Multivitamins* (MULTIVITAMINS*) 1 Each Tablet, 1 TAB ORAL DAILY, TAB 0 Refills 04/26/18 Magnesium Hydroxide* (MILK OF MAGNESIA*) 400 Mg/5 Ml Oral.susp, 30 ML ORAL DAILY , ML 04/26/18 Lorazepam* (LORAZEPAM*) 0.5 Mg Tablet, 0.5 MG ORAL QID, TAB 04/26/18 Loratadine (LORATADINE) 10 Mg Tablet, 10 MG PO DAILY, TAB 04/26/18 Haloperidol* (HALDOL*) 1 Mg Tablet, 2 MG ORAL BID, #20 TAB 0 Refills 04/26/18 Mag Hydrox/Al Hydrox/Simeth (JUSTIN-LANTA LIQUID) 355 Ml Oral.susp, 30 ML PO TID, ML 04/26/18 Fluticasone Propionate* (FLUTICASONE PROPIONATE*) 16 Gm [place].susp, 1 SPRAY NASAL DAILY, EA 04/26/18 Apixaban (ELIQUIS) 5 Mg Tablet, 5 MG PO DAILY, TAB 04/26/18 Docusate Sodium* (DOCUSATE SODIUM*) 250 Mg Capsule, 250 MG ORAL DAILY, CAP 04/26/18 Donepezil Hcl* (DONEPEZIL HCL*) 5 Mg Tab.rapdis, 5 MG ORAL BID, TAB 04/26/18 Benztropine Mesylate* (COGENTIN*) 0.5 Mg Tablet, 1 MG PO BID, TAB 04/26/18 Aspirin* (ASPIR 81*) 81 Mg Tablet.dr, 81 MG ORAL DAILY, TAB 04/26/18 Albuterol Sulfate* (ALBUTEROL SULFATE HHN*) 2.5 Mg/3 Ml Vial.neb, 3 ML INH Q6H PRN for Shortness of Breath, #30 EA 0 Refills 04/26/18 Med list reviewed/reconciled: Yes Allergies: Coded Allergies: No Known Allergies (Unverified , 04/26/18) Patient History Limited by: medical condition History Provided By: Medical Record [facility] Narrative Limited by: medical condition, other - Nonverbal at baseline per EMS Review of Systems All Other Systems: limited Physical Exam Vital Signs Date Time Temp Pulse Resp B/P (MAP) Pulse Ox O2 Delivery O2 Flow Rate FiO2 04/26/18 07:49 98.9 93 18 111/78 84 Nasal Cannula 2.0 99.0 04/26/18 23:30 28 Sp02 EP Interpretation: reviewed, normal Labs Laboratory Tests Test 04/29/18 05:30 White Blood Count 14.1 K/UL (4.8-10.8) H Red Blood Count 4.08 M/UL (4.70-6.10) L Hemoglobin 11.7 G/DL (14.2-18.0) L Hematocrit 36.7 % (42.0-52.0) L Mean Corpuscular Volume 90 FL (80-99) Mean Corpuscular Hemoglobin 28.7 PG (27.0-31.0) Mean Corpuscular Hemoglobin Concent 31.9 G/DL (32.0-36.0) L Red Cell Distribution Width 15.2 % (11.6-14.8) H Platelet Count 285 K/UL (150-450) Mean Platelet Volume 6.9 FL (6.5-10.1) Neutrophils (%) (Auto) % (45.0-75.0) Lymphocytes (%) (Auto) % (20.0-45.0) Monocytes (%) (Auto) % (1.0-10.0) Eosinophils (%) (Auto) % (0.0-3.0) Basophils (%) (Auto) % (0.0-2.0) Differential Total Cells Counted 100 Neutrophils % (Manual) 94 % (45-75) H Lymphocytes % (Manual) 4 % (20-45) L Monocytes % (Manual) 2 % (1-10) Eosinophils % (Manual) 0 % (0-3) Basophils % (Manual) 0 % (0-2) Band Neutrophils 0 % (0-8) Nucleated Red Blood Cells 1 /100 WBC Platelet Estimate Adequate Platelet Morphology Normal Anisocytosis 2+ Sodium Level 148 MMOL/L (136-145) H Potassium Level 3.1 MMOL/L (3.5-5.1) L Chloride Level 112 MMOL/L (98-107) H Carbon Dioxide Level 27 MMOL/L (21-32) Anion Gap 10 mmol/L (5-15) Blood Urea Nitrogen 28 mg/dL (7-18) H Creatinine 1.0 MG/DL (0.55-1.30) Estimat Glomerular Filtration Rate mL/min (>60) Glucose Level 125 MG/DL (74-106) H Calcium Level 8.2 MG/DL (8.5-10.1) L Phosphorus Level 2.1 MG/DL (2.5-4.9) L Magnesium Level 1.9 MG/DL (1.8-2.4) Total Bilirubin 0.8 MG/DL (0.2-1.0) Aspartate Amino Transf (AST/SGOT) 46 U/L (15-37) H Alanine Aminotransferase (ALT/SGPT) 29 U/L (12-78) Alkaline Phosphatase 68 U/L (46-116) Total Protein 7.1 G/DL (6.4-8.2) Albumin 1.5 G/DL (3.4-5.0) L Globulin 5.6 g/dL Albumin/Globulin Ratio 0.3 (1.0-2.7) L General Appearance: well appearing, no apparent distress, alert, thin Head: normocephalic EENT: PERRL/EOMI, normal ENT inspection Neck: supple Respiratory: normal breath sounds, no respiratory distress Cardiovascular: normal rate Gastrointestinal: normal inspection, non tender, soft, normal bowel sounds, non -distended Rectal: deferred Genitourinary: deferred Musculoskeletal: normal inspection, back normal Neurologic: alert, responsive Skin: normal inspection, normal color, no rash, warm/dry, palpation normal, well hydrated Lymphatic: normal inspection, no adenopathy Current Medications Current Medications Medications (Trade) Dose Ordered Sig/Jeronimo Route PRN Reason Start Time Stop Time Status Last Admin Dose Admin Acetaminophen (Tylenol) 650 mg Q4H PRN ORAL T>100.5 04/27/18 20:45 05/26/18 08:44 Albuterol/ Ipratropium (Albuterol/ Ipratropium) 3 ml Q4H PRN HHN Shortness of Breath 04/27/18 20:45 05/01/18 08:44 Dextrose (Dextrose 50%) 25 ml STAT PRN IV Hypoglycemia 04/27/18 20:30 05/27/18 20:29 Dextrose (Dextrose 50%) 50 ml STAT PRN IV Hypoglycemia 04/27/18 20:30 05/27/18 20:29 Heparin Sodium (Porcine) (Heparin 5000 units/ml) 5,000 units EVERY 12 HOURS SUBQ 04/27/18 21:00 05/26/18 11:59 04/29/18 09:35 Lorazepam (Ativan 2mg/ml 1ml) 2 mg Q2H PRN IV For Anxiety 04/27/18 20:30 05/03/18 20:29 Meropenem 500 mg/ Sodium Chloride 55 ml @ 110 mls/hr EVERY 12 HOURS IVPB 04/27/18 21:00 05/02/18 20:59 04/29/18 09:59 Morphine Sulfate (Morphine Sulfate) 4 mg Q4H PRN IVP Severe Pain (Pain Scale 7-10) 04/27/18 20:45 05/03/18 08:44 Ondansetron HCl (Zofran) 4 mg Q6H PRN IVP Nausea & Vomiting 04/27/18 20:45 05/26/18 08:44 Pantoprazole (Protonix) 40 mg DAILY IV 04/28/18 09:00 05/26/18 11:59 04/29/18 09:34 Polyethylene Glycol (Miralax) 17 gm DAILYPRN PRN ORAL Constipation 04/27/18 20:30 05/27/18 20:29 Potassium Chloride 100 ml @ 100 mls/hr ONCE IVPB 04/29/18 10:30 04/30/18 11:29 04/29/18 10:09 Trazodone HCl (Desyrel) 50 mg BEDTIME ORAL 04/27/18 21:00 05/26/18 20:59 04/28/18 21:19 Vancomycin HCl (Vanco rx to dose) 1 ea DAILY PRN MISC . 04/27/18 20:30 05/27/18 20:29 Vancomycin/Sodium Chloride 250 ml @ 166.667 mls/hr Q36H IVPB 04/28/18 10:00 05/03/18 09:59 04/28/18 14:32 GI: Plan Problems: (1) Anemia (2) FTT (failure to thrive) in adult (3) Severe protein-calorie malnutrition (4) Dementia Plan patient is currently on a regular puree diet per RN report, has no had significant amounts of PO intake over the past 2 days tentatively will schedule patient for PEG next wednesday if able to consent bioethics ordered, no family noted in facesheet calorie count ordered to see if nutritional needs are met push PO strict aspiration precautions 1:1 feeder electrolyte correction IV/PO hydration anemia work up OB stool r/o GI bleed monitor H&H, prn transfusions bowel regime ppi fu labs Discussed with Dr. Aguila. Thank you for this patient referral, we will follow. The patient was seen and examined at bedside and all new and available data was reviewed in the patients chart. I agree with the above findings, impression and plan. (Patient seen earlier today. Signature stamp does not reflect patient encounter time.). - MD [facility] CARDIAC EXERCISE SPECIALIST Apr 29, 2018 12:32
--- NOTE | 2018-04-29 13:17 | Neurology Progress Note ---
Interim History Interim History Interim History Mr. Fields looks about the same as yesterday. He continues to be cognitively impoverished. 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 He only communicates by moaning. He continues to have an altered mental state. He is unable to give me any history as he is severely aphasic. Review of Systems Neuro Review of Systems Unable to obtain. Objective Physical Exam Last Vital Signs Date Time Temp Pulse Resp B/P (MAP) Pulse Ox O2 Delivery O2 Flow Rate FiO2 04/29/18 12:00 97.4 75 21 134/79 97 Nasal Cannula 3.0 97.4 04/29/18 08:11 28 Laboratory Tests Test 04/29/18 05:30 White Blood Count 14.1 K/UL (4.8-10.8) H Red Blood Count 4.08 M/UL (4.70-6.10) L Hemoglobin 11.7 G/DL (14.2-18.0) L Hematocrit 36.7 % (42.0-52.0) L Mean Corpuscular Volume 90 FL (80-99) Mean Corpuscular Hemoglobin 28.7 PG (27.0-31.0) Mean Corpuscular Hemoglobin Concent 31.9 G/DL (32.0-36.0) L Red Cell Distribution Width 15.2 % (11.6-14.8) H Platelet Count 285 K/UL (150-450) Mean Platelet Volume 6.9 FL (6.5-10.1) Neutrophils (%) (Auto) % (45.0-75.0) Lymphocytes (%) (Auto) % (20.0-45.0) Monocytes (%) (Auto) % (1.0-10.0) Eosinophils (%) (Auto) % (0.0-3.0) Basophils (%) (Auto) % (0.0-2.0) Differential Total Cells Counted 100 Neutrophils % (Manual) 94 % (45-75) H Lymphocytes % (Manual) 4 % (20-45) L Monocytes % (Manual) 2 % (1-10) Eosinophils % (Manual) 0 % (0-3) Basophils % (Manual) 0 % (0-2) Band Neutrophils 0 % (0-8) Nucleated Red Blood Cells 1 /100 WBC Platelet Estimate Adequate Platelet Morphology Normal Anisocytosis 2+ Sodium Level 148 MMOL/L (136-145) H Potassium Level 3.1 MMOL/L (3.5-5.1) L Chloride Level 112 MMOL/L (98-107) H Carbon Dioxide Level 27 MMOL/L (21-32) Anion Gap 10 mmol/L (5-15) Blood Urea Nitrogen 28 mg/dL (7-18) H Creatinine 1.0 MG/DL (0.55-1.30) Estimat Glomerular Filtration Rate mL/min (>60) Glucose Level 125 MG/DL (74-106) H Calcium Level 8.2 MG/DL (8.5-10.1) L Phosphorus Level 2.1 MG/DL (2.5-4.9) L Magnesium Level 1.9 MG/DL (1.8-2.4) Total Bilirubin 0.8 MG/DL (0.2-1.0) Aspartate Amino Transf (AST/SGOT) 46 U/L (15-37) H Alanine Aminotransferase (ALT/SGPT) 29 U/L (12-78) Alkaline Phosphatase 68 U/L (46-116) Total Protein 7.1 G/DL (6.4-8.2) Albumin 1.5 G/DL (3.4-5.0) L Globulin 5.6 g/dL Albumin/Globulin Ratio 0.3 (1.0-2.7) L Neurologic Exam Objective PHYSICAL EXAMINATION: GENERAL: He is a well-developed, but lean, cachectic-looking gentleman, lying in bed with his head turned to the left side and his lower extremities in flexion contractures. HEAD: Normocephalic and atraumatic. EENT: Examination benign. NECK: No neck rigidity was observed. NEUROLOGIC EXAMINATION: MENTAL STATUS EXAMINATION: He was awake, but not completely alert. He was severely aphasic making it impossible for him to communicate and impossible for us to test his mental status. SPEECH: He was able to make some unintelligible mumbling sounds and in addition , he also screamed when deep painful stimuli were applied. He however was unable to communicate in any other manner. LANGUAGE: He was aphasic. CRANIAL NERVE EXAMINATION: II: He did blink to threat. III, IV & : External ocular movements were present on oculocephalic maneuvers. The pupils were 3 mm in diameter and did not react to light. V & VII: The corneal reflexes were equally brisk. VIII: He did respond to sounds and had no nystagmus. IX & X: The gag reflex was present, but subdued. XI: Sternocleidomastoids and trapezii did function. XII: The tongue was in the midline. MOTOR SYSTEM: The tone was increased in all four extremities with severe degree of spasticity and gegenhalten. In addition, he also had severe bilateral lower extremity contractures and mild upper extremity contractures in flexion. Power could not be tested on individual muscle groups. He did move all four extremities minimally. He moved the upper extremities slightly better than the lower extremities and was able to give hand relocation services specialist on both sides. SENSORY EXAMINATION: He only responded to deep pain with withdrawal and screamed. REFLEXES: 0 at the biceps, triceps, brachioradialis, knees, and ankles. The plantar responses were extensor bilaterally. COORDINATION, STANCE & GAIT: Could not be tested. Impression/Recommendations Diagnostic Impression 1. Mr. Ananda Fields is an 82-year-old, gentleman, of unknown handedness, who does have past history of hypertension, dementia, chronic kidney disease, severe debility, and lives in a alf. He was noted to have fever and altered mental state there and as a result of that was sent to the [facility] Emergency Room where he was noted to have pneumonia, sepsis, and acute on chronic renal failure. He has exhibited an alteration in his mental state, however, nowhere in the chart is it clear as to what his baseline mental status was. 2. He looks about the same as yesterday. He continues to be cognitively impoverished. 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 He only communicates by moaning. He continues to have an altered mental state. He is unable to give me any history as he is severely aphasic. 3. On neurological examination at this time, he is aphasic and thus unable to communicate in a meaningful manner. He only responds to deep painful stimuli with screams and mumbles. He however does not demonstrate any definite focality on cranial nerve examination. On motor examination, he has a spastic quadriparesis involving the lower extremities significantly more than the upper extremities and in addition has severe contractures involving the lower extremities more than the upper extremities. He does respond to deep pain with minimal withdrawal. His deep tendon reflexes are absent and his plantar responses are extensor. 4. Laboratory data on admission revealed a WBC count elevated to 16,500 and an anemia with hemoglobin of 13.7. The sodium was elevated to 161, chloride elevated to 122, BUN elevated to 65, creatinine elevated to 1.5, glucose elevated to 149, and albumin low at 1.8. His urinalysis revealed 1+ leukocyte esterase, too numerous to count red blood cells, and 2-4 white blood cells per high-power field. 5. The patient's history, neurological examination, and laboratory data are most compatible with an advanced dementia, the exact type of which is unclear. 6. In addition, he also seems to have a superadded encephalopathy due to the ongoing infectious process and renal dysfunction associated with severe dehydration that he came in with. 7. The prognosis for recovery of neurological function is poor because he most probably has a significantly advanced dementia. Recommendations 1. Continue present management. 2. Continue treatment of acute infectious process, dehydration, and renal dysfunction. 3. Observe closely. Thomas Arita M.D., M.S.P.THOMAS NOVOA Apr 29, 2018 13:17
--- NOTE | 2018-04-29 14:48 | Pulmonology Progress Note ---
Assessment/Plan Problems: (1) Sepsis (2) Pneumonia (3) ATN (acute tubular necrosis) (4) Toxic metabolic encephalopathy (5) Severe protein-calorie malnutrition (6) Psychosis (7) Dementia Assessment/Plan improving wbc still high iv fluids iv abx flores cultures check electrolytes renal w/u renal parameters improving dvt prophylaxis Subjective ROS Limited/Unobtainable: Yes Constitutional: Reports: no symptoms HEENT: Repors: no symptoms Respiratory: Reports: no symptoms Allergies: Coded Allergies: No Known Allergies (Unverified , 04/26/18) Objective Last 24 Hour Vital Signs Date Time Temp Pulse Resp B/P (MAP) Pulse Ox O2 Delivery O2 Flow Rate FiO2 04/29/18 12:00 97.4 75 21 134/79 97 Nasal Cannula 3.0 97.4 04/29/18 08:11 Nasal Cannula 2.0 28 04/29/18 08:10 97 Nasal Cannula 2.0 28 04/29/18 08:09 75 18 Nasal Cannula 2.0 28 04/29/18 08:00 98.0 79 17 130/73 97 Nasal Cannula 3.0 98.0 04/29/18 04:00 98.0 82 20 122/79 99 Nasal Cannula 3.0 98.0 04/29/18 00:00 99.3 86 20 115/75 100 Nasal Cannula 3.0 99.3 04/28/18 20:00 98.2 85 20 139/79 100 Nasal Cannula 3.0 98.2 04/28/18 19:33 83 20 Nasal Cannula 2.0 28 04/28/18 19:33 Nasal Cannula 2.0 28 04/28/18 19:33 97 Nasal Cannula 2.0 28 04/28/18 16:00 98.1 84 22 125/75 99 Nasal Cannula 3.0 98.1 Intake and Output 04/28/18 04/29/18 19:00 07:00 Intake Total 276.667 ml 55 ml Balance 276.667 ml 55 ml Intake IV Total 276.667 ml 55 ml # Voids 2 1 General Appearance: cachetic HEENT: normocephalic, atraumatic Respiratory/Chest: chest wall non-tender, lungs clear Cardiovascular: normal peripheral pulses, normal rate Abdomen: normal bowel sounds, soft, non tender Genitourinary: normal external genitalia Extremities: no cyanosis Skin: no ulcers Neurologic/Psychiatric: alert Lymphatic: no groin adenopathy Microbiology Date/Time Source Procedure Growth Status 04/28/18 11:35 Sputum Induced Gram Stain - Final Resulted 04/28/18 11:35 Sputum Induced Sputum Culture Pending Resulted Laboratory Tests 04/29/18 05:30: White Blood Count 14.1H, Red Blood Count 4.08L, Hemoglobin 11.7L, Hematocrit 36.7L, Mean Corpuscular Volume 90, Mean Corpuscular Hemoglobin 28.7, Mean Corpuscular Hemoglobin Concent 31.9L, Red Cell Distribution Width 15.2H, Platelet Count 285, Mean Platelet Volume 6.9, Neutrophils (%) (Auto) , Lymphocytes (%) (Auto) , Monocytes (%) (Auto) , Eosinophils (%) (Auto) , Basophils (%) (Auto) , Differential Total Cells Counted 100, Neutrophils % ( Manual) 94H, Lymphocytes % (Manual) 4L, Monocytes % (Manual) 2, Eosinophils % ( Manual) 0, Basophils % (Manual) 0, Band Neutrophils 0, Nucleated Red Blood Cells 1, Platelet Estimate Adequate, Platelet Morphology Normal, Anisocytosis 2+ , Sodium Level 148H, Potassium Level 3.1L, Chloride Level 112H, Carbon Dioxide Level 27, Anion Gap 10, Blood Urea Nitrogen 28H, Creatinine 1.0, Estimat Glomerular Filtration Rate , Glucose Level 125H, Calcium Level 8.2L, Phosphorus Level 2.1L, Magnesium Level 1.9, Total Bilirubin 0.8, Aspartate Amino Transf ( AST/SGOT) 46H, Alanine Aminotransferase (ALT/SGPT) 29, Alkaline Phosphatase 68, Total Protein 7.1, Albumin 1.5L, Globulin 5.6, Albumin/Globulin Ratio 0.3L Current Medications Medications (Trade) Dose Ordered Sig/Jeronimo Route PRN Reason Start Time Stop Time Status Last Admin Dose Admin Acetaminophen (Tylenol) 650 mg Q4H PRN ORAL T>100.5 04/27/18 20:45 05/26/18 08:44 Albuterol/ Ipratropium (Albuterol/ Ipratropium) 3 ml Q4H PRN HHN Shortness of Breath 04/27/18 20:45 05/01/18 08:44 Dextrose (Dextrose 50%) 25 ml STAT PRN IV Hypoglycemia 04/27/18 20:30 05/27/18 20:29 Dextrose (Dextrose 50%) 50 ml STAT PRN IV Hypoglycemia 04/27/18 20:30 05/27/18 20:29 Heparin Sodium (Porcine) (Heparin 5000 units/ml) 5,000 units EVERY 12 HOURS SUBQ 04/27/18 21:00 05/26/18 11:59 04/29/18 09:35 Lorazepam (Ativan 2mg/ml 1ml) 2 mg Q2H PRN IV For Anxiety 04/27/18 20:30 05/03/18 20:29 Meropenem 500 mg/ Sodium Chloride 55 ml @ 110 mls/hr EVERY 12 HOURS IVPB 04/27/18 21:00 05/02/18 20:59 04/29/18 09:59 Morphine Sulfate (Morphine Sulfate) 4 mg Q4H PRN IVP Severe Pain (Pain Scale 7-10) 04/27/18 20:45 05/03/18 08:44 Ondansetron HCl (Zofran) 4 mg Q6H PRN IVP Nausea & Vomiting 04/27/18 20:45 05/26/18 08:44 Pantoprazole (Protonix) 40 mg DAILY IV 04/28/18 09:00 05/26/18 11:59 04/29/18 09:34 Polyethylene Glycol (Miralax) 17 gm DAILYPRN PRN ORAL Constipation 04/27/18 20:30 05/27/18 20:29 Potassium Chloride 100 ml @ 100 mls/hr ONCE IVPB 04/29/18 10:30 04/30/18 11:29 04/29/18 10:09 Trazodone HCl (Desyrel) 50 mg BEDTIME ORAL 04/27/18 21:00 05/26/18 20:59 04/28/18 21:19 Vancomycin HCl (Vanco rx to dose) 1 ea DAILY PRN MISC . 04/27/18 20:30 05/27/18 20:29 Vancomycin/Sodium Chloride 250 ml @ 166.667 mls/hr Q36H IVPB 04/28/18 10:00 05/03/18 09:59 04/28/18 14:32 Melanie Christy MD Apr 29, 2018 14:48
[2018-04-29] MEDS ORDERED: 1/2 NS 1000ml IV ONE ×2 (15:38→21:44)
[2018-04-29 16:00] VITALS: BP 133/89
[2018-04-29] MEDS ORDERED: ACETAMINOPHEN325 M1 ORAL (17:58)
[2018-04-29] MEDS ORDERED: DUONEB 0.5-3(2.53 ML HHN (18:00)
[2018-04-29] MEDS ORDERED: LORAZEPAM2 MG/1 M1 IV (18:04)
[2018-04-29] MEDS ORDERED: MEROPENEM500 MG IV (18:06)
[2018-04-29] MEDS ORDERED: MORPHINE SU4 MG/1 M1 IV (18:07)
[2018-04-29] MEDS ORDERED: HEPARIN SO5000 UNIT2 SUBQ (18:09)
[2018-04-29] MEDS ORDERED: ZOFRAN 4 MG4 MG/2 ML IV (18:10)
[2018-04-29] MEDS ORDERED: PROTONIX40 M1 IVP (18:14)
[2018-04-29] MEDS ORDERED: MIRALAX17 G2 ORAL (18:15)
[2018-04-29] MEDS ORDERED: VANCOMYCIN750 MG/150 IV (18:20)
--- NOTE | 2018-04-29 20:31 | Infectious Diseases Prog Note ---
Assessment/Plan Assessment/Plan Assessment: Sepsis- 2ry to PNA; r/o bacteremia -u/a RBC TNTC, WBC 2-4, nit neg, leuk +1 -Bcx NTD -CXR Right infrahilar infiltrate -sp cx pending Fever/leukocytosis; improving APOLONIA; improving ?bladder mass -US: Mild right hydronephrosis, etiology not demonstrated Trabeculated bladder with debris. Irregular posterior polypoid wall thickening could indicate the presence of a mass, and cystoscopy should be considered.. Dementia HTN anemia SNF resident Plan: -Continue empiric IV vanco #02/22- and Meropenem #3 (abx d#) pending sputum culture -narrow based on sp cx results -04/27 SP Zosyn #2 -f/u cx -monitor CBC/BMP, temperatures -aspiration precautions Thank you for this consultation. Will continue to follow along with you. Discussed with RN. Subjective Allergies: Coded Allergies: No Known Allergies (Unverified , 04/26/18) Subjective afebrile in ~72hrs WBC overall improved at 3 L NC sp cx pending Bcx NTD Objective Vital Signs Last 24 Hour Vital Signs Date Time Temp Pulse Resp B/P (MAP) Pulse Ox O2 Delivery O2 Flow Rate FiO2 04/29/18 16:00 98.7 82 20 133/89 98 Nasal Cannula 3.0 98.7 04/29/18 12:00 97.4 75 21 134/79 97 Nasal Cannula 3.0 97.4 04/29/18 08:11 Nasal Cannula 2.0 28 04/29/18 08:10 97 Nasal Cannula 2.0 28 04/29/18 08:09 75 18 Nasal Cannula 2.0 28 04/29/18 08:00 98.0 79 17 130/73 97 Nasal Cannula 3.0 98.0 04/29/18 04:00 98.0 82 20 122/79 99 Nasal Cannula 3.0 98.0 04/29/18 00:00 99.3 86 20 115/75 100 Nasal Cannula 3.0 99.3 Height (Feet): 5 Height (Inches): 8.00 Weight (Pounds): 88 Objective General Appearance: normal inspection, well appearing, no apparent distress, non-toxic, cachetic, Chronically Ill HEENT:, atraumatic, PERRL, moist mucus membranes Neck: normal inspection, full range of motion, supple, no meningismus, no bony tend Respiratory: normal inspection, lungs clear, normal breath sounds, no rhonchi, no respiratory distress, no retraction, no accessory muscle use, no wheezing, decreased breath sounds, speaking full sentences, other - Poor respiratory effort Cardiovascular : regular rate, rhythm, no edema, no JVD, normal capillary refill Gastrointestinal: normal inspection, normal bowel sounds, non tender, soft, no mass, non-distended, no guarding Genitourinary: no CVA tenderness Musculoskeletal: normal inspection, back normal, normal range of motion, no calf tenderness, pelvis stable, other - bandage on right heel removed; healing stage 1 decub. No obvious infection Skin: normal inspection, normal color, no rash Microbiology Date/Time Source Procedure Growth Status 04/28/18 11:35 Sputum Induced Gram Stain - Final Resulted 04/28/18 11:35 Sputum Induced Sputum Culture Pending Resulted Laboratory Tests Test 04/29/18 05:30 White Blood Count 14.1 K/UL (4.8-10.8) H Red Blood Count 4.08 M/UL (4.70-6.10) L Hemoglobin 11.7 G/DL (14.2-18.0) L Hematocrit 36.7 % (42.0-52.0) L Mean Corpuscular Volume 90 FL (80-99) Mean Corpuscular Hemoglobin 28.7 PG (27.0-31.0) Mean Corpuscular Hemoglobin Concent 31.9 G/DL (32.0-36.0) L Red Cell Distribution Width 15.2 % (11.6-14.8) H Platelet Count 285 K/UL (150-450) Mean Platelet Volume 6.9 FL (6.5-10.1) Neutrophils (%) (Auto) % (45.0-75.0) Lymphocytes (%) (Auto) % (20.0-45.0) Monocytes (%) (Auto) % (1.0-10.0) Eosinophils (%) (Auto) % (0.0-3.0) Basophils (%) (Auto) % (0.0-2.0) Differential Total Cells Counted 100 Neutrophils % (Manual) 94 % (45-75) H Lymphocytes % (Manual) 4 % (20-45) L Monocytes % (Manual) 2 % (1-10) Eosinophils % (Manual) 0 % (0-3) Basophils % (Manual) 0 % (0-2) Band Neutrophils 0 % (0-8) Nucleated Red Blood Cells 1 /100 WBC Platelet Estimate Adequate Platelet Morphology Normal Anisocytosis 2+ Sodium Level 148 MMOL/L (136-145) H Potassium Level 3.1 MMOL/L (3.5-5.1) L Chloride Level 112 MMOL/L (98-107) H Carbon Dioxide Level 27 MMOL/L (21-32) Anion Gap 10 mmol/L (5-15) Blood Urea Nitrogen 28 mg/dL (7-18) H Creatinine 1.0 MG/DL (0.55-1.30) Estimat Glomerular Filtration Rate mL/min (>60) Glucose Level 125 MG/DL (74-106) H Calcium Level 8.2 MG/DL (8.5-10.1) L Phosphorus Level 2.1 MG/DL (2.5-4.9) L Magnesium Level 1.9 MG/DL (1.8-2.4) Total Bilirubin 0.8 MG/DL (0.2-1.0) Aspartate Amino Transf (AST/SGOT) 46 U/L (15-37) H Alanine Aminotransferase (ALT/SGPT) 29 U/L (12-78) Alkaline Phosphatase 68 U/L (46-116) Total Protein 7.1 G/DL (6.4-8.2) Albumin 1.5 G/DL (3.4-5.0) L Globulin 5.6 g/dL Albumin/Globulin Ratio 0.3 (1.0-2.7) L Current Medications Medications (Trade) Dose Ordered Sig/Jeronimo Route PRN Reason Start Time Stop Time Status Last Admin Dose Admin Acetaminophen (Tylenol) 650 mg Q4H PRN ORAL T>100.5 04/27/18 20:45 05/26/18 08:44 Albuterol/ Ipratropium (Albuterol/ Ipratropium) 3 ml Q4H PRN HHN Shortness of Breath 04/27/18 20:45 05/01/18 08:44 Dextrose (Dextrose 50%) 25 ml STAT PRN IV Hypoglycemia 04/27/18 20:30 05/27/18 20:29 Dextrose (Dextrose 50%) 50 ml STAT PRN IV Hypoglycemia 04/27/18 20:30 05/27/18 20:29 Heparin Sodium (Porcine) (Heparin 5000 units/ml) 5,000 units EVERY 12 HOURS SUBQ 04/27/18 21:00 05/26/18 11:59 04/29/18 09:35 Lorazepam (Ativan 2mg/ml 1ml) 2 mg Q2H PRN IV For Anxiety 04/27/18 20:30 05/03/18 20:29 Meropenem 500 mg/ Sodium Chloride 55 ml @ 110 mls/hr EVERY 12 HOURS IVPB 04/27/18 21:00 05/02/18 20:59 04/29/18 09:59 Morphine Sulfate (Morphine Sulfate) 4 mg Q4H PRN IVP Severe Pain (Pain Scale 7-10) 04/27/18 20:45 05/03/18 08:44 Ondansetron HCl (Zofran) 4 mg Q6H PRN IVP Nausea & Vomiting 04/27/18 20:45 05/26/18 08:44 Pantoprazole (Protonix) 40 mg DAILY IV 04/28/18 09:00 05/26/18 11:59 04/29/18 09:34 Polyethylene Glycol (Miralax) 17 gm DAILYPRN PRN ORAL Constipation 04/27/18 20:30 05/27/18 20:29 Potassium Chloride 100 ml @ 100 mls/hr ONCE IVPB 04/29/18 10:30 04/30/18 11:29 04/29/18 10:09 Trazodone HCl (Desyrel) 50 mg BEDTIME ORAL 04/27/18 21:00 05/26/18 20:59 04/28/18 21:19 Vancomycin HCl (Vanco rx to dose) 1 ea DAILY PRN MISC . 04/27/18 20:30 05/27/18 20:29 Vancomycin/Sodium Chloride 250 ml @ 166.667 mls/hr Q36H IVPB 04/28/18 10:00 05/03/18 09:59 04/28/18 14:32 Clarissa Jaime M.D. Apr 29, 2018 20:31
[2018-04-29] MEDS ORDERED: Tubing IV Secondary IV ONE (21:44)
[2018-04-29] MEDS ORDERED: NS 500ML ONE (21:44)
--- NOTE | 2018-05-02 14:56 | Discharge Summary ---
Discharge Summary Discharge Summary _ DATE OF ADMISSION: 04/26/2018 DATE OF DISCHARGE 04/29/2018 REASON FOR ADMISSION: 82 years old male with past medical history of hypertension, dementia, anemia, was brought by ambulance from custodial facility for fever. At baseline patient nonverbal and unable to provide any information. Patient was febrile at custodial facility but after Tylenol given, temperature down to 99 on arrival, but later -101.4. Patient showed evidence of leukocytosis, WBC 16.5. Chest x-ray showed evidence of right infrahilar infiltrate. Sodium 158. BUN 84 , creatinine 2.0, troponin elevated- 0.4 EKG revealed normal sinus rhythm, no acute ischemic changes. Albumin 2.1, proBNP 1400. Patient admitted with diagnosis of sepsis, healthcare associated pneumonia, hypernatremia , acute kidney injury , toxic metabolic encephalopathy, dementia, protein calorie malnutrition, CONSULTANTS: neurologist Dr. Arita pulmonary Dr. Christy ID specialist Dr. Valencia GI specialist Dr. Aguila conical mixer Dr. Freitas HOSPITAL COURSE: Patient admitted to telemetry floor. Patient started on the IV hydration. Supplemental oxygen provided as needed to keep pulse oximetry above 92% Pulmonary toilet provided as needed. Patient started on empiric antibiotics. ID specialist and apiarist closely followed. Urine culture negative, blood culture negative, sputum culture showed Escherichia coli ,Klebsiella, Carlota. Patient was on the IV antibiotics as per ID direction and continue antibiotics upon discharge per ID recommendations. Patient was on the IV hydration. Acute kidney injury was likely secondary to intravascular volume depletion as per conical mixer. Possibly acute tubular necrosis. With IV hydration BUN from 84 down to 28, creatinine from 2.0 down to 1.0. Renal parameters and electrolytes were closely monitored. Electrolytes hypernatremia and hypokalemia corrected as needed. Prior to discharge sodium from 158 down to 148, potassium stable Renal ultrasound revealed mild hydronephrosis , consider possible bladder mass. Urology consult was requested Neurologist seen and evaluated patient . Per neurologist patient had chronic advanced dementia . Patient also had toxic metabolic encephalopathy due to severe dehydration and sepsis superimposed on chronic advanced dementia. . Neurologist recommended continue current treatment. Venous duplex bilateral lower extremity was negative. Patient undergone swallow evaluation. Diet provided as per speech therapist recommendations with strict aspiration/ reflux precaution with to 1 feeding Speech therapist recommended video swallow evaluation. Nutritional recommendations implemented in plan of care. DVT and GI prophylaxis provided. Bowel regimen instituted. Supportive care provided. Patient was transferred to [facility] hospital for further management. Prior to discharge leukocytosis trending down, creatinine down to normal, sodium down to 148, fever and tachypnea resolved, pulse oximetry stable on oxygen via nasal cannula. FINAL DIAGNOSES: Sepsis Healthcare associated pneumonia with Escherichia coli and Klebsiella Toxic metabolic encephalopathy on advanced dementia Acute kidney injury ( secondary to intravascular depletion) , resolved Hypernatremia Hypokalemia Severe protein calorie malnutrition Failure to thrive Anemia Dysphagia DISCHARGE MEDICATIONS: See Medication Reconciliation list. DISCHARGE INSTRUCTIONS: Patient was discharged to [facility]. Follow up with medical doctor at the facility. Patient will need to have video swallow evaluation. Patient will need to have urology evaluation for possible bladder mass I have been assigned to dictate discharge summary for this account. I was not involved in the patient's management. Sharon Roberts NP May 02, 2018 14:56
== END 2018-04-29 21:45 | DRG 871 ==
LOC: EDBD 07:55 → EMR 08:25 → 2E 08:31 → EDBEDREQ 08:39 → 4E 04-27 20:53
DX: A41.9 Sepsis, unspecified organism (principal); J15.5 Pneumonia due to Escherichia coli; J15.0 Pneumonia due to Klebsiella pneumoniae; G92 Toxic encephalopathy; E43 Unspecified severe protein-calorie malnutrition; N17.0 Acute kidney failure with tubular necrosis; G82.50 Quadriplegia, unspecified; N39.0 Urinary tract infection, site not specified; E87.0 Hyperosmolality and hypernatremia; R47.01 Aphasia; N13.30 Unspecified hydronephrosis; Z68.1 Body mass index [BMI] 19.9 or less, adult; Y95 Nosocomial condition; E86.0 Dehydration; E87.6 Hypokalemia; R62.7 Adult failure to thrive; D64.9 Anemia, unspecified; R13.10 Dysphagia, unspecified; F03.90 Unspecified dementia, unspecified severity, without behavioral disturbance, psychotic disturbance, mood disturbance, and anxiety; F29 Unspecified psychosis not due to a substance or known physiological condition; I12.9 Hypertensive chronic kidney disease with stage 1 through stage 4 chronic kidney disease, or unspecified chronic kidney disease; N18.9 Chronic kidney disease, unspecified
CPT/HCPCS: 36415; 71045; 76770; 80048; 80053; 80069; 80202; 81003; 82248; 82550; 82553; 83605; 83735; 83880; 84100; 84295; 84484; 85007; 85025; 86710; 87040; 87070; 87081; 87181; 87205; 93005; 93970; 94664; 94760; 99285; 99291